=== PATIENT | male | born 1930 | race Caucasian/White ===

== ENCOUNTER 2017-01-25 19:10 | Inpatient (IN) ==
[2017-01-25] MEDS ORDERED: cefTRIAXone 1,000 MG in SODIUM CHLORIDE 0.9% 100 ML IV STA (19:34)
[2017-01-25 19:35] LABS: Basophils % 0.2 % (0.0-0.8); Hematocrit 38.5 VOL% (42.0-52.0); Hemoglobin 12.8 GM/DL (14.0-18.0); Immature Granulocytes % 0.9 %; Immature Granulocytes Absolute 0.15 #; Lymphocytes % 11.8 % (21.2-54.2); Mean Corpuscular HGB Conc 33.2 GM/DL (32-36); Mean Corpuscular Hemoglobin 26 PG (27-34); Mean Corpuscular Volume 79.1 FL (87-102); Mean Platelet Volume 11.2 FL (9.6-12.0); Monocytes # 1.6 10*3/uL (0.11-0.8); Monocytes % 9.1 % (1.7-12.7); Neutrophils # 13.2 10*3/uL (1.4-7.4); Platelet Count 216 T/CUMM (130-400); Red Blood Count 4.87 MC/CUMM (3.8-5.5); Red Cell Distribution Width 18.4 % (9.3-17.3)
[2017-01-25 19:47] LABS: Calcium 8.4 MG/DL (8.5-10.1); Magnesium 1.3 MG/DL (1.8-2.4); Osmolality,Calculated 276.1 MOS/KG (273-304); Potassium 3.7 MMOL/L (3.5-5.1)
[2017-01-25 19:47] LABS: Apearance,Urine CLOUDY (Clear); Bacteria,Urine Many /HPF (Few); Bilirubin,Urine Negative (Negative); Blood, Urine Small mg/dL (Negative); Glucose,Urine (UA) Negative (Negative); Ketones,Urine Negative (Negative); Nitrite,Urine Negative (Negative); Protein,Urine 100 MG/DL; RBC,Urine 58 /HPF (0-4); Urine Color Yellow (Yellow); Urine Urobilinogen < 2.0 EU/DL (0.2-1.0); WBC,Urine 5492 /HPF (0-6)
[2017-01-25 19:50] LABS: Lactic Acid 2.5 MMOL/L (0.4-2.0)
[2017-01-25] MEDS ORDERED: LACTATED RINGERS 1,000 ML IV ONE (20:03)
--- NOTE | 2017-01-25 20:26 | Emergency Department Note ---
Michael Hernandez Brittany, am scribing for, and in the presence of, Benny Subramanian MD 19 :37. Marilynn Hernandez Hans, MD, personally performed the services described in this documentation, ascribed by Janice Rodriguez in my presence, and it is both accurate and complete . Arrival - Arrival Chief Complaint: Altered Mental Status Stated Complaint: ams ED Nursing Triage Note: Pt began having altered mental status. Pt has history of alzheimers, but today family noticed a change in mental status. Mode of Arrival: Stretcher Limitations: Altered Mental Status Source: Family, RN Notes Reviewed Time Seen by Provider: 01/25/17 19:26 - History of Present Illness HPI Narrative: Patient is a 86 y/o white male with a history of Alzheimer's Disease presenting to the ED by EMS for further evaluation of AMS. Per triage note patient's noticed a change in his mental status today, different from his baseline. Patient does not have any family in room to provide any further history of his acute onset of AMS earlier today. He is oriented x3 in room and is able to tell us his name and current place. Patient denies having any pain or any other sx' s. It is noted that patient smells of foul urine. He does not appear to be in any acute distress. No other complaint/pain. Onset (ago): hour(s) Consistency: constant Allergies/Adverse Reactions: Allergies Allergy/AdvReac Type Severity Reaction Status Date / Time Penicillins Allergy Unknown/Unable Verified 01/25/17 19:20 to obtain Sulfa (Sulfonamide Allergy Unknown/Unable Verified 11/20/16 11:59 Antibiotics) to obtain Home Medications: Home Medications Medication Instructions Recorded Confirmed Type Allopurinol [Allopurinol] 300 mg PO DAILY 01/25/17 01/25/17 History Amlodipine Besylate/Benazepril 1 capsule PO DAILY 01/25/17 01/25/17 History [Amlodipine-Benazepril 10-40 mg] Atenolol [Atenolol] 50 mg PO BID 01/25/17 01/25/17 History Cetirizine Tab [ZyrTEC Tab] 10 mg PO DAILY PRN 01/25/17 01/25/17 History Colchicine [Colcrys] 0.6 mg PO BID 01/25/17 01/25/17 History Cyanocobalamin (Vitamin B-12) 2,500 mcg PO DAILY 01/25/17 01/25/17 History [Vitamin B12] Digoxin [Digoxin] 125 mcg PO DAILY 01/25/17 01/25/17 History Esomeprazole Magnesium [Nexium] 40 mg PO DAILY 01/25/17 01/25/17 History Finasteride [Finasteride] 5 mg PO DAILY 01/25/17 01/25/17 History Glimepiride [Glimepiride] 2 mg PO BID 01/25/17 01/25/17 History Metformin HCl [Metformin HCl] 1,000 mg PO BID W/MEALS 01/25/17 01/25/17 History Potassium Chloride [Klor-Con M20] 20 meq PO DAILY 01/25/17 01/25/17 History Tamsulosin [Flomax] 0.4 mg PO DAILY 01/25/17 01/25/17 History Warfarin Sodium [Warfarin Sodium] 2.5 mg PO TUSA 01/25/17 01/25/17 History Warfarin Sodium [Warfarin Sodium] 5 mg PO SUMOWEFR 01/25/17 01/25/17 History Review of System - Review of System 12 point system: reviewed and no additional remarkable complaints except as stated - Review of System Constitutional: Absent: chills, fever Eyes: Absent: vision change Head/Ears/Nose/Throat: Absent: nasal drainage, sore throat Respiratory: Absent: respiratory distress Cardiovascular: Absent: chest pain Gastrointestinal: Absent: abdominal pain, nausea, vomiting, diarrhea, constipation Genitourinary male: Absent: urgency, dysuria, frequency Musculoskeletal: Absent: arm pain, back pain, leg pain, neck pain Skin: Absent: rash Neurological: Present: confusion. Absent: headache Psychiatric: Absent: anxiety, depression Medical,Surgical,& Family Hx - Medical History Cardio: History of: Cardiac Dysrhythmia (a fib), CHF, Hypertension Endocrine: History of: Diabetes Mellitus (IDDM) Rheumatology: History of;: Gout - Social History Smoking Status: Never smoker Frequency of Alcohol Use: None Type of Drug Use: None Exam Vital Signs: Vital Signs Temperature 99.3 F 01/25/17 19:12 Pulse Rate 74 01/25/17 19:12 Respiratory Rate 18 01/25/17 19:43 Blood Pressure 133/64 01/25/17 19:12 O2 Sat by Pulse Oximetry 98 01/25/17 19:12 - General General appearance: alert, in no apparent distress, other (smells of foul urine) - Head Head exam: Present: atraumatic, normocephalic, normal inspection - Eye Eye exam: Present: normal appearance, PERRL, EOMI - ENT ENT exam: Present: normal exam, normal oropharynx - Neck Neck exam: Present: normal inspection, full ROM, trachea midline - Chest Chest inspection: Present: normal inspection, symmetric chest wall rise - Respiratory Respiratory exam: Present: normal lung sounds bilaterally - Cardiovascular Cardiovascular exam: Present: regular rate, normal rhythm, normal heart sounds - Abdominal Exam Abdominal exam: Present: soft, normal bowel sounds. Absent: tenderness - Extremities Exam Extremities exam: Present: normal inspection - Back Exam Back exam: Present: normal inspection - Neurological Exam Neurological exam: Present: alert, oriented X3, CN II-XII intact. Absent: motor sensory deficit - Psychiatric Psychiatric exam: Present: normal affect, normal mood - Skin Skin exam: Present: warm, dry Course Course Narrative: This patient was diagnosed with a severe urinary tract infection in the ER. I discussed his admission with Dr. Beltran is covering for Dr. Fall and he agreed to admit him to the hospital for IV antibiotics and repeat lactic acid in the morning. He received a liter of fluids in the ER and we will place him on a maintenance rate overnight and that should help clear his lactic acidosis which is fairly minimal. His vital signs are normal and he does not require ICU admission. Should be noted that the patient was initially refusing admission but I discussed this with his who states that he is not oriented and does not have the capacity to make decisions we will go ahead and admit him. Results - Labs CBC & BMP: 01/25/17 19:19 01/25/17 19:19 Lab Results: I have reviewed the patients labs Labs: Laboratory Tests 01/25/17 19:19 WBC 17.0 H RBC 4.87 Hgb 12.8 L Hct 38.5 L MCV 79.1 L MCH 26 L RDW 18.4 H Plt Count 216 Neut % (Auto) 78.0 H Lymph % (Auto) 11.8 L Neut # (Auto) 13.2 H Lymph # (Auto) 2.0 [place] # (Auto) 1.6 H Laboratory Tests 01/25/17 01/25/17 19:19 19:28 Sodium 135 L Potassium 3.7 Chloride 99 Carbon Dioxide 27 BUN 21 H Creatinine 1.00 BUN/Creatinine Ratio 21.00 H Glucose 173 H Lactic Acid 2.5 H Calcium 8.4 L Magnesium 1.3 L Urine Color Yellow Urine Appearance Cloudy Urine pH 5.0 Ur Specific [place] 1.010 Urine Protein 100 Urine Glucose (UA) Negative Urine Ketones Negative Urine Blood Small Urine Nitrate Negative Urine Bilirubin Negative Urine Urobilinogen < 2.0 H Urine Leukocytes Large H Urine RBC 58 Urine WBC 5492 Urine Bacteria Many Disposition Clinical Impression: Urinary tract infection Case discussed with: patient, patient's family Disposition: Still a Patient Condition: Stable Time of Disposition: 20:26
[2017-01-25 20:29] LABS: INR 3.7
[2017-01-25 20:35] LABS: PT Patient Result 42.1 SECS; Partial Thromboplastin Time 48.6 SECS (0-40)
[2017-01-25] MEDS ORDERED: cefTRIAXone 1,000 MG VIAL ONE (20:43)
[2017-01-25] MEDS ORDERED: GLUCAGON 1 MG VIAL IM PRN (21:45)
[2017-01-25] MEDS ORDERED: DEXTROSE 50% 25 GM/50 ML VIAL IV PRN (21:45)
[2017-01-25] MEDS ORDERED: PROMETHAZINE 25 MG TABLET PO PRN (21:45)
[2017-01-25] MEDS ORDERED: ONDANSETRON 4 MG/2 ML VIAL IV PRN (21:45)
[2017-01-25] MEDS: INSULIN REGULAR 100 UNIT/ML SUBCUT SCH (22:06)
[2017-01-25] MEDS: SODIUM CHLORIDE 0.9% 1,000 ML IV SCH (23:00)
[2017-01-26 05:51] LABS: Basophils % 0.2 % (0.0-0.8); Hematocrit 37.5 VOL% (42.0-52.0); Hemoglobin 12.4 GM/DL (14.0-18.0); Immature Granulocytes % 0.7 %; Immature Granulocytes Absolute 0.11 #; Lymphocytes # 2.5 10*3/uL (1.4-4.0); Lymphocytes % 16.1 % (21.2-54.2); Mean Corpuscular HGB Conc 33.1 GM/DL (32-36); Mean Corpuscular Hemoglobin 26 PG (27-34); Mean Corpuscular Volume 78.6 FL (87-102); Mean Platelet Volume 11.9 FL (9.6-12.0); Monocytes # 1.7 10*3/uL (0.11-0.8); Neutrophils # 11.3 10*3/uL (1.4-7.4); Platelet Count 192 T/CUMM (130-400); Red Blood Count 4.77 MC/CUMM (3.8-5.5); Red Cell Distribution Width 18.1 % (9.3-17.3); White Blood Count 15.7 T/CUMM (4-12)
[2017-01-26] MEDS: SODIUM CHLORIDE 0.9% 1,000 ML IV SCH ×2 (06:07→15:01)
[2017-01-26 06:28] LABS: Calcium 8.4 MG/DL (8.5-10.1); Osmolality,Calculated 277.7 MOS/KG (273-304); Potassium 3.4 MMOL/L (3.5-5.1)
[2017-01-26 07:34] LABS: Hypochromasia 1+; Ovalocytes Slight; Platelet Estimate Normal
--- NOTE | 2017-01-26 07:55 | XRay Report ---
XR chest 1V portable Indication: Febrile illness. Comparison: Chest x-ray 07/24/2009. Technique: Portable AP chest was performed. Findings: Faint airspace opacities are present within the right infrahilar lung adjacent the cardiac margin. Heart size is borderline. Mild prominence of central vasculature is noted which may reflect technique. Remote right rib fracture involving the lateral eighth rib is present. Impression: 1. Nonconsolidating airspace disease right infrahilar lung could reflect evidence of infection. Given the difference in technique, little overall change in appearance of the lung parenchyma is demonstrated. 01/26/2017 7:52 AM PROCEDURE INTERPRETED AT [facility] DEPARTMENT OF RADIOLOGY Final Report Signed by: Dr. Jeff Truong
--- NOTE | 2017-01-26 07:58 | Family Practice History&Phys ---
Assessment and Plan (1) Urinary tract infection Status: Acute Assessment and plan: 01/26/2017: Patient was started on IV Rocephin and cultures obtained in the emergency room. Dr. German will be consulted. Current Visit: Yes History of Present Illness Chief complaint: Altered mental status History of present illness: Mr. Van is a 86 year old male Patient is 86-year-old white male who apparently had some altering of his mental status and his called an ambulance to bring him to the emergency room. Patient does complain of some dysuria which he has had in the past and when he was seen in the emergency room was noted to have prominent pyuria. Patient was admitted for IV antibiotic therapy. Patient states he is ready to go home this morning so he can help his who is a dialysis patient. He did not have any fever or chills that he could recall. He denies any flank pain, nausea, vomiting or abdominal pain. His history is somewhat limited as he does have a history of dementia, but he is able to answer all questions and follow commands accurately. Home Medications Medication Instructions Recorded Confirmed Type Allopurinol [Allopurinol] 300 mg PO DAILY 01/25/17 01/25/17 History Amlodipine Besylate/Benazepril 1 capsule PO DAILY 01/25/17 01/25/17 History [Amlodipine-Benazepril 10-40 mg] Atenolol [Atenolol] 50 mg PO BID 01/25/17 01/25/17 History Cetirizine Tab [ZyrTEC Tab] 10 mg PO DAILY PRN 01/25/17 01/25/17 History Colchicine [Colcrys] 0.6 mg PO BID 01/25/17 01/25/17 History Cyanocobalamin (Vitamin B-12) 2,500 mcg PO DAILY 01/25/17 01/25/17 History [Vitamin B12] Digoxin [Digoxin] 125 mcg PO DAILY 01/25/17 01/25/17 History Esomeprazole Magnesium [Nexium] 40 mg PO DAILY 01/25/17 01/25/17 History Finasteride [Finasteride] 5 mg PO DAILY 01/25/17 01/25/17 History Glimepiride [Glimepiride] 2 mg PO BID 01/25/17 01/25/17 History Metformin HCl [Metformin HCl] 1,000 mg PO BID W/MEALS 01/25/17 01/25/17 History Potassium Chloride [Klor-Con M20] 20 meq PO DAILY 01/25/17 01/25/17 History Tamsulosin [Flomax] 0.4 mg PO DAILY 01/25/17 01/25/17 History Warfarin Sodium [Warfarin Sodium] 2.5 mg PO TUSA 01/25/17 01/25/17 History Warfarin Sodium [Warfarin Sodium] 5 mg PO SUMOWETHFR 01/25/17 01/25/17 History Allergies Allergy/AdvReac Type Severity Reaction Status Date / Time Penicillins Allergy Unknown/Unable Verified 01/25/17 19:20 to obtain Sulfa (Sulfonamide Allergy Unknown/Unable Verified 11/20/16 11:59 Antibiotics) to obtain - Constitutional Constitutional: Absent: chills, fever(s), weakness - EENT Eyes: Absent: blurry vision, loss of vision Ears: Absent: decreased hearing, ear pain Nose, mouth and throat: Absent: sinus pressure, sore throat - Cardiovascular Cardiovascular: Absent: chest pain at rest, palpitations - Respiratory Respiratory: Absent: cough, dyspnea on exertion, wheezing - Gastrointestinal Gastrointestinal: Absent: abdominal pain, diarrhea, nausea, vomiting - Genitourinary Genitourinary: Present: dysuria. Absent: hematuria - Musculoskeletal Musculoskeletal: Absent: arthralgias, back pain - Neurological Neurological: Present: confusion (This is chronic). Absent: focal weakness, numbness, paresthesias - Psychiatric Psychiatric: Present: confusion. Absent: depression - Endocrine Endocrine: Absent: fatigue, polydipsia, polyphagia - Hematologic/Lymphatic Hematologic/Lymphatic: Absent: easy bleeding, easy bruising Medical,Surgical,& Family Hx - Medical History Cardio: History of: Cardiac Dysrhythmia (a fib), CHF, Hypertension Psychological: No history of: Anxiety Disorders, ADHD, Behavior Problems, Bipolar Disorder, Depression, Previous Suicide Attempt, Psychiatric/Substance Abuse Tx, Schizophrenia, Violent Behavior, Psychiatric Problems Neurology: History of: Dementia Endocrine: History of: Diabetes Mellitus (IDDM) Rheumatology: History of;: Gout - Surgical History Surgical History: noncontributory - Family History Family History: Reports;: Family Cancer (father prostate ca), Family Diabetes ( mother, sister) - Social History Smoking Status: Never smoker Frequency of Alcohol Use: None Type of Drug Use: None Exam - Constitutional Vitals: Period Temp Pulse Resp BP Sys/Montiel Pulse Ox Last 24 Hr 98.0 F-99.5 F 74-95 18-20 116-141/59-73 91-98 Exam: General: Objective patient is a well-developed white male in no acute distress. Patient is able to answer questions appropriately and follow commands accurately. It is reported that he has a history of dementia but this is not clearly evident on exam. HEENT: Pupils equal and reactive to light. Patent nares and airway Neck: No meningismus, adenopathy, thyromegaly. There are no auscultated carotid bruits. Cardiovascular: Regular rhythm. No murmurs or gallops Chest: Clear to auscultation without rales rhonchi wheezes. Abdomen: Patient has some mild suprapubic tenderness. No masses, rebound, guarding or abnormal bowel sounds Neuro: Cranial nerves intact and DTRs and strength symmetric in all extremities. Dermatologic: No evidence of abnormal lesions or masses. Musculoskeletal: There is no joint swelling or tenderness or deformity. Extremities: Is no calf swelling or tenderness Results - Labs CBC & BMP: 01/26/17 05:32 01/26/17 05:32 Lab Results: I have reviewed the past 24 hour labs Quality Measures - VTE Contraindication to Pharmacological VTE Prophylaxis: Already on Theraputic Agent , No Prophylaxis Needed
[2017-01-26] MEDS ORDERED: CETIRIZINE 10 MG TABLET PO PRN (08:02)
[2017-01-26] MEDS ORDERED: MAGNESIUM SULF RIDER 2 GM in PREMIX 1 EACH IV ONE (08:13)
[2017-01-26] MEDS: INSULIN REGULAR 100 UNIT/ML SUBCUT SCH ×4 (09:08→21:48)
[2017-01-26] MEDS: FINASTERIDE 5 MG TABLET PO SCH (09:54)
[2017-01-26] MEDS: ATENOLOL 50 MG TABLET PO SCH ×2 (09:54→21:45)
[2017-01-26] MEDS: POTASSIUM CHLORIDE 20 MEQ TABLET PO SCH (09:54)
[2017-01-26] MEDS: GLIMEPIRIDE 2 MG TABLET PO SCH ×2 (09:55→21:45)
[2017-01-26] MEDS: ALLOPURINOL 300 MG TABLET PO SCH (09:55)
[2017-01-26] MEDS: COLCHICINE 0.6 MG TABLET PO SCH ×2 (09:55→21:45)
[2017-01-26] MEDS: DIGOXIN 0.125 MG TABLET PO SCH (09:55)
[2017-01-26] MEDS: TAMSULOSIN 0.4 MG CAPSULE PO SCH (09:55)
[2017-01-26] MEDS: CYANOCOBALAMIN 500 MCG TABLET PO SCH (09:55)
--- NOTE | 2017-01-26 10:20 | Urology Consultation ---
Assessment and Plan - Time spent with patient Time spent with patient: Greater than 30 minutes Time spent discussing smoking cessation with patient: more than 10 minutes (1) Urinary retention due to benign prostatic hyperplasia Status: Acute Assessment and plan: After the patient voided, I had the nursing staff check a postvoid residual. As it turns out, the patient had a 500 cc post void residual. He is already on Flomax and Proscar at home. After verbal consent was obtained, and under sterile technique, I placed a difficult catheter at the patient's bedside. It was an 18 Russian Lopez catheter. The patient tolerated this well. 10 cc was placed in the balloon. A urine culture was sent. I will have the patient keep the Lopez catheter in place and when he goes home go home with the urimeter as well as a urinary leg bag. I will have him follow-up for a voiding trial. Current Visit: Yes (2) Urinary tract infection Status: Acute Assessment and plan: The patient is currently being treated for a urinary tract infection with IV antibiotics. Urine cultures so far have grown out gram-negative rods speciation and sensitivities to follow. I recommend a total of 10 days antibiotic course. Current Visit: Yes History of Present Illness - Data of Consult Patient: new to practice Consult date: 01/26/17 Requesting Physician: Harshil Fall - Consult Narrative Reason for consult: Urinary retention, urinary tract infection History of present illness: Mr. Van is a 86 year old male Who presented to the emergency room with disorientation, fever, dysuria. This is been going on for the last few days but has gotten progressively worse. He notes the dysuria is dull and persistent and a 2 out of 10 on pain scale. No other associated symptoms nothing seems to make it better or worse. He was admitted through the hospitalist service and I was consulted for definitive care. CC: Harshil Fall MD - Home Medications and Allergies Home Medications: Home Medications Medication Instructions Recorded Confirmed Type Allopurinol [Allopurinol] 300 mg PO DAILY 01/25/17 01/25/17 History Amlodipine Besylate/Benazepril 1 capsule PO DAILY 01/25/17 01/25/17 History [Amlodipine-Benazepril 10-40 mg] Atenolol [Atenolol] 50 mg PO BID 01/25/17 01/25/17 History Cetirizine Tab [ZyrTEC Tab] 10 mg PO DAILY PRN 01/25/17 01/25/17 History Colchicine [Colcrys] 0.6 mg PO BID 01/25/17 01/25/17 History Cyanocobalamin (Vitamin B-12) 2,500 mcg PO DAILY 01/25/17 01/25/17 History [Vitamin B12] Digoxin [Digoxin] 125 mcg PO DAILY 01/25/17 01/25/17 History Esomeprazole Magnesium [Nexium] 40 mg PO DAILY 01/25/17 01/25/17 History Finasteride [Finasteride] 5 mg PO DAILY 01/25/17 01/25/17 History Glimepiride [Glimepiride] 2 mg PO BID 01/25/17 01/25/17 History Metformin HCl [Metformin HCl] 1,000 mg PO BID W/MEALS 01/25/17 01/25/17 History Potassium Chloride [Klor-Con M20] 20 meq PO DAILY 01/25/17 01/25/17 History Tamsulosin [Flomax] 0.4 mg PO DAILY 01/25/17 01/25/17 History Warfarin Sodium [Warfarin Sodium] 2.5 mg PO TUSA 01/25/17 01/25/17 History Warfarin Sodium [Warfarin Sodium] 5 mg PO SUMOWETHFR 01/25/17 01/25/17 History Allergies/Adverse Reactions: Allergies Allergy/AdvReac Type Severity Reaction Status Date / Time Penicillins Allergy Unknown/Unable Verified 01/25/17 19:20 to obtain Sulfa (Sulfonamide Allergy Unknown/Unable Verified 11/20/16 11:59 Antibiotics) to obtain 12 point system: reviewed and no additional remarkable complaints except as stated (Those noted above in HPI.) - Constitutional Constitutional: Present: as per HPI - EENT Eyes: Present: as per HPI Ears: Present: as per HPI Nose, mouth and throat: Present: as per HPI - Cardiovascular Cardiovascular: Present: as per HPI - Respiratory Respiratory: Present: as per HPI - Gastrointestinal Gastrointestinal: Present: as per HPI - Genitourinary Genitourinary: Present: as per HPI - Musculoskeletal Musculoskeletal: Present: as per HPI - Neurological Neurological: Present: as per HPI - Psychiatric Psychiatric: Present: as per HPI - Endocrine Endocrine: Present: as per HPI - Hematologic/Lymphatic Hematologic/Lymphatic: Present: as per HPI Exam - Constitutional Vitals: Period Temp Pulse Resp BP Sys/Montiel Pulse Ox Last 24 Hr 98.0 F-99.5 F 74-95 18-20 116-141/59-73 91-98 General appearance: normal weight, no acute distress - Head Head exam: Present: normal inspection, normocephalic, atraumatic - Eye Eye exam: Present: EOMI Pupils: Present: DANA - ENT ENT exam: Present: normal exam, normal external ear exam - Neck Neck exam: Present: normal inspection - Respiratory Respiratory exam: Present: clear to auscultation bilaterally - Cardiovascular Cardiovascular exam: Present: regular rate and rhythm - GI/Abdominal GI/Abdominal exam: Present: normal bowel sounds, soft - Genitourinary Genitourinary: scrotum without lesions, cysts, edema or rash, penis with no lesions or discharge - Extremities Exam Extremities exam: Present: normal inspection, normal capillary refill - Back Exam Back exam: Present: normal inspection - Neurological Exam Neurological exam: Present: alert - Psychiatric Psychiatric exam: Present: normal affect, normal mood - Skin Skin exam: Present: normal color, warm Results - Labs CBC & BMP: 01/26/17 05:32 01/26/17 05:32 Lab Results: I have reviewed the past 24 hour labs
[2017-01-26] MEDS: PANTOPRAZOLE 40 MG TABLET PO SCH (13:27)
[2017-01-26] MEDS: metFORMIN 500 MG TABLET PO SCH (17:45)
[2017-01-26] MEDS ORDERED: WARFARIN 5 MG TABLET PO SCH (18:00)
[2017-01-26] MEDS: cefTRIAXone 1,000 MG in SODIUM CHLORIDE 0.9% 100 ML IV SCH (21:45)
[2017-01-27] MEDS: SODIUM CHLORIDE 0.9% 1,000 ML IV SCH ×4 (00:40→23:39)
[2017-01-27 06:26] LABS: INR 1.8
[2017-01-27 06:43] LABS: Calcium 8.4 MG/DL (8.5-10.1); Magnesium 1.7 MG/DL (1.8-2.4); Osmolality,Calculated 278.3 MOS/KG (273-304); Potassium 3.3 MMOL/L (3.5-5.1)
[2017-01-27 06:45] LABS: PT Patient Result 20.1 SECS
--- NOTE | 2017-01-27 07:34 | Urology Progress Note ---
Urology - PN: Subj Interval history: The patient has a positive urine culture with gram-negative rods and the final report is pending. The patient has symptoms of difficulty voiding for a week or 2 prior to admission with an elevated residual urine. I am going to remove the catheter today for trial of voiding Exam - Constitutional Vitals: Period Temp Pulse Resp BP Sys/Montiel Pulse Ox Last 24 Hr 98.1 F-99.3 F 64-80 16-20 103-118/51-67 93-96 Results - Labs CBC & BMP: 01/26/17 05:32 01/27/17 05:16
[2017-01-27] MEDS: INSULIN REGULAR 100 UNIT/ML SUBCUT SCH ×4 (08:07→21:30)
--- NOTE | 2017-01-27 09:03 | Internal Med Progress Note ---
Assessment and Plan (1) Change in mental status Status: Acute Assessment and plan: 86-year-old male admitted to acute care * Change in mental status. Probably related to the urinary tract infection. Patient does have a baseline early dementia * Urinary tract infection. Cultures are pending. Patient is on Rocephin for gram-negative rods * BPH with urinary retention. Patient has had recurrent urinary tract infections in recent past. I suspect he is not emptying his bladder. * Atrial fibrillation. He will be continued on Coumadin. Will restart * Hypertension. Blood pressure is stable * Diabetes. Continue him on metformin and Amaryl * Will ask PT and OT to see the patient Current Visit: Yes (2) Hypertension Status: Acute Current Visit: Yes (3) Diabetes Status: Acute Current Visit: Yes (4) A-fib Status: Acute Current Visit: Yes (5) BPH (benign prostatic hyperplasia) Status: Acute Current Visit: Yes (6) Urinary tract infection Status: Acute Current Visit: Yes Internal Medicine - PN: Subj Interval history: Patient is 86-year-old male well known to me with history of A. fib, congestive heart failure, hypertension who was admitted with change in mental status and was found to have a urinary tract infection. Patient had elevated white count with increased INR. He has been started on appropriate medications and was seen in consultation by urology. A Lopez catheter was placed. He is feeling better this morning. According to nurses he was confused during the night. He denies any chest pain or shortness of breath. He denies any nausea or vomiting. Exam (Progress Note) - Constitutional Vitals: Period Temp Pulse Resp BP Sys/Montiel Pulse Ox Last 24 Hr 98.1 F-99.3 F 64-84 16-20 103-118/51-67 90-96 Exam: Examination: GENERAL: NAD. HEENT: PERRLA. EOMI. NECK: Neck is supple. CVS: Regular rate and rhythm. S1 and S2 are normal. RESPIRATORY: Lungs are clear. No rales or rhonchi. ABDOMEN: Soft and nontender. Bowel sounds are present. No hepatosplenomegaly. EXT: No edema. Peripheral pulses are present. EDGE STRIPPER: Patient is awake, alert and oriented to time place and person. He is moving both upper and lower extremities SKIN: Warm and dry. MSK: No obvious deformity. Results - Labs CBC & BMP: 01/26/17 05:32 01/27/17 05:16 Lab Results: I have reviewed the past 24 hour labs Quality Measures - VTE Contraindication to Pharmacological VTE Prophylaxis: Already on Theraputic Agent , No Prophylaxis Needed
[2017-01-27] MEDS: CYANOCOBALAMIN 500 MCG TABLET PO SCH (09:09)
[2017-01-27] MEDS: PANTOPRAZOLE 40 MG TABLET PO SCH (09:10)
[2017-01-27] MEDS: COLCHICINE 0.6 MG TABLET PO SCH ×2 (09:10→21:30)
[2017-01-27] MEDS: ALLOPURINOL 300 MG TABLET PO SCH (09:10)
[2017-01-27] MEDS: TAMSULOSIN 0.4 MG CAPSULE PO SCH (09:10)
[2017-01-27] MEDS: FINASTERIDE 5 MG TABLET PO SCH (09:10)
[2017-01-27] MEDS: POTASSIUM CHLORIDE 20 MEQ TABLET PO SCH ×2 (09:10→21:30)
[2017-01-27] MEDS: DIGOXIN 0.125 MG TABLET PO SCH (09:11)
[2017-01-27] MEDS: metFORMIN 500 MG TABLET PO SCH ×2 (09:11→18:28)
[2017-01-27] MEDS: GLIMEPIRIDE 2 MG TABLET PO SCH ×2 (09:11→21:30)
[2017-01-27] MEDS: ATENOLOL 50 MG TABLET PO SCH ×2 (09:16→21:30)
[2017-01-27] MEDS: cefTRIAXone 1,000 MG in SODIUM CHLORIDE 0.9% 100 ML IV SCH (21:32)
[2017-01-28 06:58] LABS: Basophils # 0.1 10*3/uL (0.0-0.2); Basophils % 0.5 % (0.0-0.8); Eosinophils # 0.3 10*3/uL (0.0-0.87); Eosinophils % 2.9 % (0.00-10.9); Hematocrit 35.3 VOL% (42.0-52.0); Hemoglobin 11.4 GM/DL (14.0-18.0); Immature Granulocytes % 0.8 %; Immature Granulocytes Absolute 0.07 #; Lymphocytes % 32.3 % (21.2-54.2); Mean Corpuscular HGB Conc 32.3 GM/DL (32-36); Mean Corpuscular Hemoglobin 26 PG (27-34); Mean Corpuscular Volume 80.6 FL (87-102); Monocytes # 0.8 10*3/uL (0.11-0.8); Monocytes % 8.9 % (1.7-12.7); Neutrophils # 5.1 10*3/uL (1.4-7.4); Neutrophils % 54.6 % (38.7-73.9); Platelet Count 208 T/CUMM (130-400); Red Blood Count 4.38 MC/CUMM (3.8-5.5); Red Cell Distribution Width 18.1 % (9.3-17.3); White Blood Count 9.3 T/CUMM (4-12)
[2017-01-28 07:25] LABS: Calcium 7.8 MG/DL (8.5-10.1); Osmolality,Calculated 279.3 MOS/KG (273-304); Potassium 3.6 MMOL/L (3.5-5.1)
[2017-01-28] MEDS: INSULIN REGULAR 100 UNIT/ML SUBCUT SCH ×4 (07:28→20:03)
--- NOTE | 2017-01-28 07:52 | Urology Progress Note ---
Urology - PN: Subj Interval history: The patient's urine culture is E. coli sensitive to multiple antibiotics. The patient is voiding his last residual was 150 cc. I will decrease this to twice a day and if he continues to have low residual he can go home as needed Exam - Constitutional Vitals: Period Temp Pulse Resp BP Sys/Montiel Pulse Ox Last 24 Hr 97.3 F-98.1 F 68-84 18-20 106-144/66-72 92-94 Results - Labs CBC & BMP: 01/28/17 05:05 01/28/17 05:05
--- NOTE | 2017-01-28 08:19 | Internal Med Progress Note ---
Assessment and Plan (1) Change in mental status Status: Acute Assessment and plan: 86-year-old male admitted to acute care * Change in mental status. Resolved other than mild dementia * Urinary tract infection. E. coli sensitive to Rocephin * BPH with urinary retention. He is getting in and out catheterization * Atrial fibrillation. Continue Coumadin * Hypertension. Blood pressure is stable * Diabetes. Continue him on metformin and Amaryl * Patient working with PT and OT Current Visit: Yes (2) Hypertension Status: Acute Current Visit: Yes (3) Diabetes Status: Acute Current Visit: Yes (4) A-fib Status: Acute Current Visit: Yes (5) BPH (benign prostatic hyperplasia) Status: Acute Current Visit: Yes (6) Urinary tract infection Status: Acute Current Visit: Yes Internal Medicine - PN: Subj Interval history: Patient is 86-year-old male well known to me with history of A. fib, congestive heart failure, hypertension who was admitted with change in mental status. Patient is growing E. coli in his urine sensitive to Rocephin. He is still having large amount of residuals. Patient has had about 4 or 5 recurrent urinary tract infections over last 6 months. He is probably not emptying his bladder completely. Exam (Progress Note) - Constitutional Vitals: Period Temp Pulse Resp BP Sys/Montiel Pulse Ox Last 24 Hr 97.3 F-98.1 F 68-84 18-20 106-144/66-72 92-94 Exam: Examination: GENERAL: NAD. CVS: Regular rate and rhythm. S1 and S2 are normal. RESPIRATORY: Lungs are clear. No rales or rhonchi. ABDOMEN: Soft and nontender. Bowel sounds are present. No hepatosplenomegaly. EXT: No edema. Peripheral pulses are present. YACHT BUILDER: Patient is awake, alert and oriented to time place and person. SKIN: Warm and dry. MSK: No obvious deformity. Results - Labs CBC & BMP: 01/28/17 05:05 01/28/17 05:05 Lab Results: I have reviewed the past 24 hour labs Quality Measures - VTE Contraindication to Pharmacological VTE Prophylaxis: Already on Theraputic Agent , No Prophylaxis Needed
[2017-01-28] MEDS: SODIUM CHLORIDE 0.9% 1,000 ML IV SCH ×2 (08:30→17:00)
[2017-01-28] MEDS: CYANOCOBALAMIN 500 MCG TABLET PO SCH (09:01)
[2017-01-28] MEDS: GLIMEPIRIDE 2 MG TABLET PO SCH ×2 (09:01→20:04)
[2017-01-28] MEDS: DIGOXIN 0.125 MG TABLET PO SCH (09:01)
[2017-01-28] MEDS: ALLOPURINOL 300 MG TABLET PO SCH (09:01)
[2017-01-28] MEDS: POTASSIUM CHLORIDE 20 MEQ TABLET PO SCH ×2 (09:02→20:04)
[2017-01-28] MEDS: ATENOLOL 50 MG TABLET PO SCH ×2 (09:02→20:04)
[2017-01-28] MEDS: COLCHICINE 0.6 MG TABLET PO SCH ×2 (09:02→20:04)
[2017-01-28] MEDS: metFORMIN 500 MG TABLET PO SCH ×2 (09:02→17:00)
[2017-01-28] MEDS: FINASTERIDE 5 MG TABLET PO SCH (09:02)
[2017-01-28] MEDS: PANTOPRAZOLE 40 MG TABLET PO SCH (09:02)
[2017-01-28] MEDS: TAMSULOSIN 0.4 MG CAPSULE PO SCH (09:02)
[2017-01-28] MEDS ORDERED: WARFARIN 2.5 MG TABLET PO SCH (18:00)
[2017-01-28] MEDS: cefTRIAXone 1,000 MG in SODIUM CHLORIDE 0.9% 100 ML IV SCH (20:04)
[2017-01-29] MEDS: SODIUM CHLORIDE 0.9% 1,000 ML IV SCH ×2 (01:58→02:27)
--- NOTE | 2017-01-29 07:42 | Urology Progress Note ---
Urology - PN: Subj Interval history: The patient had elevated residual urine yesterday. He has been taught self- catheterization and will have a home health nurse see the patient post discharge and continue intermittent self-catheterization as needed. He will continue Flomax and Avodart Exam - Constitutional Vitals: Period Temp Pulse Resp BP Sys/Montiel Pulse Ox Last 24 Hr 96.7 F-97.8 F 67-86 16-20 126-145/61-84 92-96 Results - Labs CBC & BMP: 01/28/17 05:05 01/28/17 05:05 Specialty Discharge - Follow Up or Referrals Follow up with: Kuldip German MD [Physician] - 1 Month
[2017-01-29] MEDS: INSULIN REGULAR 100 UNIT/ML SUBCUT SCH ×2 (08:01→10:37)
[2017-01-29] MEDS: CYANOCOBALAMIN 500 MCG TABLET PO SCH (08:31)
[2017-01-29] MEDS: DIGOXIN 0.125 MG TABLET PO SCH (08:31)
[2017-01-29] MEDS: COLCHICINE 0.6 MG TABLET PO SCH (08:31)
[2017-01-29] MEDS: GLIMEPIRIDE 2 MG TABLET PO SCH (08:31)
[2017-01-29] MEDS: POTASSIUM CHLORIDE 20 MEQ TABLET PO SCH (08:32)
[2017-01-29] MEDS: TAMSULOSIN 0.4 MG CAPSULE PO SCH (08:32)
[2017-01-29] MEDS: ALLOPURINOL 300 MG TABLET PO SCH (08:32)
[2017-01-29] MEDS: ATENOLOL 50 MG TABLET PO SCH (08:32)
[2017-01-29] MEDS: FINASTERIDE 5 MG TABLET PO SCH (08:32)
[2017-01-29] MEDS: PANTOPRAZOLE 40 MG TABLET PO SCH (08:32)
[2017-01-29] MEDS: metFORMIN 500 MG TABLET PO SCH (08:32)
--- NOTE | 2017-01-29 09:45 | Discharge Summary ---
Hospital Course - Hospital Course Hospital Course: 86-year-old male with history of hypertension, A. fib, diabetes, BPH who was admitted with change in mental status and was found to have urinary tract infection. Patient was started on IV antibiotics. He had difficulty voiding. Patient was seen in consultation by urology. They recommended in and out catheterization. Patient is still having significant retention. He was talked about doing in and out catheterization himself and is doing well. He is ready to be discharged home. He will be sent home on Ceftin 500 twice daily. His INR is pending this morning. His Coumadin dose was adjusted. I will see him back in office in about 10 days. Diagnosis - Discharge Diagnosis (1) Change in mental status Status: Acute (2) Hypertension Status: Acute (3) Diabetes Status: Acute (4) A-fib Status: Acute (5) BPH (benign prostatic hyperplasia) Status: Acute (6) Urinary tract infection Status: Acute Specialty Discharge - Follow Up or Referrals Follow up with: Kuldip German MD [Physician] - 03/05/17 9:00 am Discharge Plan - Discharge Data Disposition: Home Health Service Condition at Discharge: Stable Discharge Diet: advance to your usual diet Activity: resume usual activities as tolerated - Discharge Medications New Cefuroxime Tab [Ceftin] 500 mg PO BID #14 tablet Continue Amlodipine Besylate/Benazepril [Amlodipine-Benazepril 10-40 mg] 1 capsule PO DAILY Colchicine [Colcrys] 0.6 mg PO BID Atenolol 50 mg PO BID Warfarin Sodium 5 mg PO SUMOWETHFR Warfarin Sodium 2.5 mg PO TUSA Finasteride 5 mg PO DAILY Cetirizine Tab [ZyrTEC Tab] 10 mg PO DAILY PRN PRN Reason: Allergy Symptoms Glimepiride 2 mg PO BID Metformin HCl 1,000 mg PO BID W/MEALS Esomeprazole Magnesium [Nexium] 40 mg PO DAILY Tamsulosin [Flomax] 0.4 mg PO DAILY Cyanocobalamin (Vitamin B-12) [Vitamin B12] 2,500 mcg PO DAILY Allopurinol 300 mg PO DAILY Potassium Chloride [Klor-Con M20] 20 meq PO DAILY Digoxin 125 mcg PO DAILY - Follow Up or Referral Follow Up: Kuldip German MD [Physician] - 03/05/17 9:00 am - Forms/Instructions Instructions: Benign Prostatic Hypertrophy (DC), How to Catheterize Yourself ( Man) (GEN) Additional Discharge Instructions: Appointment in office in 10 days with TCM. CBC BMP and a urinalysis. Call in Ceftin 500 twice daily for 7 days Exam - Constitutional Vitals: Period Temp Pulse Resp BP Sys/Montiel Pulse Ox Last 24 Hr 96.7 F-97.8 F 67-77 16-20 126-145/61-84 92-98 Exam: Examination: GENERAL: NAD. CVS: Regular rate and rhythm. RESPIRATORY: Lungs are clear. ABDOMEN: Soft and nontender. EXT: No edema. Peripheral pulses are present. TESTING ANALYST: Patient is awake, alert and oriented to time place and person. SKIN: Warm and dry. MSK: No obvious deformity. Discharge Results Procedures and tests throughout hospitalization: Pending Orders 01/25/17 20:43 Blood Culture Stat Labs on day of discharge: Labs from last 24 hours 01/29/17 01/28/17 01/28/17 07:52 19:40 15:19 POC Glucose 64 L 131 H 142 H 01/28/17 11:01 POC Glucose 127 H Preliminary micro results at discharge 01/25/17 20:43 Blood Culture - Preliminary Blood No growth at 3 days 01/25/17 20:36 Blood Culture - Preliminary Blood No growth at 3 days DS: Provider Date of admission: 01/25/17 20:20 Primary care physician: . No PCP Attending physician on admission: Harshil Fall MD Consults: 01/26/17 08:01 Consult to Physician [CONS] Routine Comment: Consulting Provider: Kuldip German Person Notified: aware 01/27/17 09:09 Consult to Occupational Therapy [CONS] Routine Reason for Occupational Therapy: Evaluate and Treat Consult to Physical Therapy [CONS] Routine Reason for Physical Therapy: Evaluate and Treat 01/28/17 08:06 Consult to Case Mgmt/Social Srvs [CONS] Routine Reason for Case Mgmt/Social Srvs: Home Health Discharging clinician: Harshil Fall MD
[2017-01-29 10:16] LABS: INR 1.6; PT Patient Result 17.1 SECS
[2017-01-29 11:39] VITALS: BP 125/65
== END 2017-01-29 13:20 | disposition home health service (06) | DRG 690 ==
LOC: EDUNIT# → EDBD → N.ED 19:10 → N.EDINP 20:20 → N.5E 21:12
PROVIDERS: ADMIT Internal Medicine; ATTEND Internal Medicine

== ENCOUNTER 2017-10-27 13:54 | Inpatient (IN) ==
[2017-10-27] MEDS ORDERED: GLUCAGON 1 MG VIAL IM PRN (13:59)
[2017-10-27] MEDS ORDERED: DEXTROSE 50% 25 GM/50 ML VIAL IV PRN (13:59)
[2017-10-27] MEDS ORDERED: ONDANSETRON 4 MG/2 ML VIAL IV PRN (13:59)
[2017-10-27] MEDS ORDERED: ACETAMINOPHEN 325 MG TABLET PO PRN (13:59)
[2017-10-27 15:12] LABS: Basophils # 0.1 10*3/uL (0.0-0.2); Basophils % 0.4 % (0.0-0.8); Hematocrit 38.7 VOL% (42.0-52.0); Hemoglobin 13.2 GM/DL (14.0-18.0); Immature Granulocytes % 0.8 %; Immature Granulocytes Absolute 0.14 #; Lymphocytes # 2.3 10*3/uL (1.4-4.0); Lymphocytes % 12.2 % (21.2-54.2); Mean Corpuscular HGB Conc 34.1 GM/DL (32-36); Mean Corpuscular Hemoglobin 27 PG (27-34); Mean Platelet Volume 11.5 FL (9.6-12.0); Monocytes # 1.7 10*3/uL (0.11-0.8); Monocytes % 8.9 % (1.7-12.7); Neutrophils # 14.4 10*3/uL (1.4-7.4); Neutrophils % 77.7 % (38.7-73.9); Platelet Count 292 T/CUMM (130-400); Red Blood Count 4.84 MC/CUMM (3.8-5.5); Red Cell Distribution Width 16.7 % (9.3-17.3); White Blood Count 18.5 T/CUMM (4-12)
[2017-10-27 15:22] LABS: INR 2.9
[2017-10-27 15:26] LABS: PT Patient Result 29.5 SECS
[2017-10-27 15:28] LABS: Albumin 2.7 G/DL (3.4-5.0); Bilirubin,Total 1.3 MG/DL (0.2-1.0); Calcium 8.4 MG/DL (8.5-10.1); Osmolality,Calculated 268.4 MOS/KG (273-304); Potassium 3.1 MMOL/L (3.5-5.1); Total Protein 7.9 G/DL (6.4-8.3)
[2017-10-27] MEDS ORDERED: VANCOMYCIN INJ 1,250 MG in SODIUM CHLORIDE 0.9% 250 ML IV ONE (16:00)
[2017-10-27 18:25] LABS: Apearance,Urine CLOUDY (Clear); Bacteria,Urine Many /HPF (Few); Bilirubin,Urine Negative (Negative); Blood, Urine Moderate mg/dL (Negative); Glucose,Urine (UA) Negative (Negative); Ketones,Urine Negative (Negative); Mucus,Urine Occasional /LPF (Occasional); Nitrite,Urine Negative (Negative); Protein,Urine 100 MG/DL; Squamous Epithelial Cell,Urine Occasional /HPF (0-10); Urine Color Yellow (Yellow); Urine Specific Gravity 1.011 (1.001-1.035); Urine Urobilinogen < 2.0 EU/DL (0.2-1.0); WBC,Urine 453 /HPF (0-6)
[2017-10-27] MEDS: ATENOLOL 50 MG TABLET PO SCH (21:04)
[2017-10-27] MEDS: DOCUSATE SODIUM 100 MG CAPSULE PO SCH (21:04)
[2017-10-27] MEDS: GLIMEPIRIDE 2 MG TABLET PO SCH (21:04)
[2017-10-27] MEDS: cefTRIAXone 1,000 MG in SYRINGE 1 EACH IV SCH (21:04)
[2017-10-27] MEDS: POTASSIUM CHLORIDE 20 MEQ TABLET PO SCH (21:04)
[2017-10-28 07:11] LABS: Basophils # 0.1 10*3/uL (0.0-0.2); Basophils % 0.4 % (0.0-0.8); Eosinophils % 0.2 % (0.00-10.9); Hemoglobin 12.3 GM/DL (14.0-18.0); Immature Granulocytes Absolute 0.17 #; Lymphocytes # 2.5 10*3/uL (1.4-4.0); Lymphocytes % 14.9 % (21.2-54.2); Mean Corpuscular HGB Conc 32.4 GM/DL (32-36); Mean Corpuscular Hemoglobin 27 PG (27-34); Mean Corpuscular Volume 81.9 FL (87-102); Mean Platelet Volume 12.2 FL (9.6-12.0); Monocytes # 1.7 10*3/uL (0.11-0.8); Monocytes % 10.3 % (1.7-12.7); Neutrophils # 12.3 10*3/uL (1.4-7.4); Neutrophils % 73.2 % (38.7-73.9); Platelet Count 224 T/CUMM (130-400); Red Blood Count 4.64 MC/CUMM (3.8-5.5); Red Cell Distribution Width 16.7 % (9.3-17.3); White Blood Count 16.8 T/CUMM (4-12)
[2017-10-28 07:22] LABS: INR 2.4
[2017-10-28 07:26] LABS: PT Patient Result 24.1 SECS
[2017-10-28 07:28] LABS: Calcium 8.8 MG/DL (8.5-10.1); Osmolality,Calculated 272.8 MOS/KG (273-304); Potassium 3.2 MMOL/L (3.5-5.1)
[2017-10-28] MEDS: GLIMEPIRIDE 2 MG TABLET PO SCH ×2 (08:57→20:18)
[2017-10-28] MEDS: TAMSULOSIN 0.4 MG CAPSULE PO SCH (08:57)
[2017-10-28] MEDS: POTASSIUM CHLORIDE 20 MEQ TABLET PO SCH ×2 (08:57→20:19)
[2017-10-28] MEDS: ALLOPURINOL 300 MG TABLET PO SCH (08:57)
[2017-10-28] MEDS: metFORMIN 500 MG TABLET PO SCH ×2 (08:57→16:00)
[2017-10-28] MEDS: PANTOPRAZOLE 40 MG TABLET PO SCH (08:58)
[2017-10-28] MEDS: ATENOLOL 50 MG TABLET PO SCH ×2 (08:58→20:18)
[2017-10-28] MEDS: amLODIPine 10 MG TABLET PO SCH (08:58)
[2017-10-28] MEDS: DOCUSATE SODIUM 100 MG CAPSULE PO SCH ×2 (08:58→20:18)
[2017-10-28] MEDS: BENAZEPRIL 40 MG TABLET PO SCH (08:59)
[2017-10-28] MEDS ORDERED: POTASSIUM CHLORIDE 20 MEQ TABLET PO SCH (09:00)
[2017-10-28] MEDS: VANCOMYCIN INJ 1,000 MG in SODIUM CHLORIDE 0.9% 250 ML IV SCH (13:26)
[2017-10-28] MEDS: cefTRIAXone 1,000 MG in SYRINGE 1 EACH IV SCH (20:19)
[2017-10-29] MEDS: VANCOMYCIN INJ 1,000 MG in SODIUM CHLORIDE 0.9% 250 ML IV SCH (05:57)
[2017-10-29 06:01] LABS: INR 1.9
[2017-10-29] MEDS: BENAZEPRIL 40 MG TABLET PO SCH (08:17)
[2017-10-29] MEDS: ALLOPURINOL 300 MG TABLET PO SCH (08:18)
[2017-10-29] MEDS: POTASSIUM CHLORIDE 20 MEQ TABLET PO SCH ×2 (08:18→20:38)
[2017-10-29] MEDS: DOCUSATE SODIUM 100 MG CAPSULE PO SCH ×2 (08:18→20:38)
[2017-10-29] MEDS: TAMSULOSIN 0.4 MG CAPSULE PO SCH (08:18)
[2017-10-29] MEDS: metFORMIN 500 MG TABLET PO SCH ×2 (08:18→17:37)
[2017-10-29] MEDS: PANTOPRAZOLE 40 MG TABLET PO SCH (08:18)
[2017-10-29] MEDS: amLODIPine 10 MG TABLET PO SCH (08:18)
[2017-10-29] MEDS: ATENOLOL 50 MG TABLET PO SCH ×2 (08:18→20:38)
[2017-10-29] MEDS: GLIMEPIRIDE 2 MG TABLET PO SCH ×2 (08:18→20:37)
[2017-10-29] MEDS ORDERED: CETIRIZINE 10 MG TABLET PO PRN (08:55)
[2017-10-29] MEDS ORDERED: traMADol 50 MG TABLET PO PRN (08:55)
[2017-10-29] MEDS ORDERED: BENAZEPRIL PO SCH (09:00)
[2017-10-29] MEDS ORDERED: NON-FORMULARY MEDICATION (Esomeprazole Magnesium [Nexium] 40 MG) PO SCH (09:00)
[2017-10-29] MEDS ORDERED: AMLODIPINE BESYLATE PO SCH (09:00)
[2017-10-29] MEDS ORDERED: [UNRECOGNIZED DRUG - OTHER] PO SCH (09:00)
[2017-10-29] MEDS: FINASTERIDE 5 MG TABLET PO SCH (09:52)
[2017-10-29] MEDS: DIGOXIN 0.125 MG TABLET PO SCH (09:52)
[2017-10-29] MEDS: CYANOCOBALAMIN 500 MCG TABLET PO SCH (09:52)
[2017-10-29] MEDS: DICLOFENAC 1% GEL 100 GM TUBE TOP SCH ×2 (09:52→20:39)
[2017-10-29] MEDS: ceFAZolin 1,000 MG in SYRINGE 1 EACH IV SCH (14:58)
[2017-10-29] MEDS ORDERED: WARFARIN 5 MG TABLET PO SCH (18:00)
[2017-10-30] MEDS: ceFAZolin 1,000 MG in SYRINGE 1 EACH IV SCH ×2 (00:16→08:43)
[2017-10-30] MEDS: VANCOMYCIN INJ 1,000 MG in SODIUM CHLORIDE 0.9% 250 ML IV SCH (00:19)
[2017-10-30 05:42] LABS: Basophils % 0.4 % (0.0-0.8); Eosinophils # 0.3 10*3/uL (0.0-0.87); Eosinophils % 2.7 % (0.00-10.9); Hemoglobin 11.3 GM/DL (14.0-18.0); Immature Granulocytes Absolute 0.18 #; Lymphocytes # 3.2 10*3/uL (1.4-4.0); Lymphocytes % 34.6 % (21.2-54.2); Mean Corpuscular HGB Conc 32.3 GM/DL (32-36); Mean Corpuscular Hemoglobin 26 PG (27-34); Mean Corpuscular Volume 81.2 FL (87-102); Mean Platelet Volume 11.8 FL (9.6-12.0); Monocytes # 0.7 10*3/uL (0.11-0.8); Monocytes % 7.6 % (1.7-12.7); Neutrophils # 4.8 10*3/uL (1.4-7.4); Neutrophils % 52.7 % (38.7-73.9); Platelet Count 305 T/CUMM (130-400); Red Blood Count 4.31 MC/CUMM (3.8-5.5); Red Cell Distribution Width 16.6 % (9.3-17.3); White Blood Count 9.1 T/CUMM (4-12)
[2017-10-30 05:47] LABS: INR 2.5; Total Cells Counted 100
[2017-10-30 06:02] LABS: PT Patient Result 25.9 SECS
[2017-10-30 06:11] LABS: Calcium 8.4 MG/DL (8.5-10.1); Osmolality,Calculated 280.3 MOS/KG (273-304); Potassium 3.9 MMOL/L (3.5-5.1)
[2017-10-30] MEDS: metFORMIN 500 MG TABLET PO SCH (08:38)
[2017-10-30] MEDS: amLODIPine 10 MG TABLET PO SCH (08:38)
[2017-10-30] MEDS: ALLOPURINOL 300 MG TABLET PO SCH (08:38)
[2017-10-30] MEDS: BENAZEPRIL 40 MG TABLET PO SCH (08:38)
[2017-10-30] MEDS: CYANOCOBALAMIN 500 MCG TABLET PO SCH (08:39)
[2017-10-30] MEDS: TAMSULOSIN 0.4 MG CAPSULE PO SCH (08:39)
[2017-10-30] MEDS: GLIMEPIRIDE 2 MG TABLET PO SCH (08:39)
[2017-10-30] MEDS: DOCUSATE SODIUM 100 MG CAPSULE PO SCH (08:39)
[2017-10-30] MEDS: POTASSIUM CHLORIDE 20 MEQ TABLET PO SCH (08:39)
[2017-10-30] MEDS: ATENOLOL 50 MG TABLET PO SCH (08:39)
[2017-10-30] MEDS: PANTOPRAZOLE 40 MG TABLET PO SCH (08:40)
[2017-10-30] MEDS: DIGOXIN 0.125 MG TABLET PO SCH (08:40)
[2017-10-30] MEDS: FINASTERIDE 5 MG TABLET PO SCH (08:40)
[2017-10-30] MEDS: DICLOFENAC 1% GEL 100 GM TUBE TOP SCH (08:45)
[2017-10-30 11:22] VITALS: BP 128/72
[2017-10-30] MEDS ORDERED: VANCOMYCIN INJ 1,000 MG in SODIUM CHLORIDE 0.9% 250 ML IV SCH (13:00)
[2017-10-30] MEDS ORDERED: WARFARIN 2.5 MG TABLET PO SCH (18:00)
== END 2017-10-30 13:22 | disposition home health service (06) | DRG 603 ==
LOC: N.2E 14:30
PROVIDERS: ADMIT Internal Medicine; ATTEND Internal Medicine

== ENCOUNTER 2018-08-28 10:21 | Inpatient (IN) ==
[2018-08-28] MEDS ORDERED: GLUCAGON 1 MG VIAL IM PRN (10:42)
[2018-08-28] MEDS ORDERED: DEXTROSE 50% 25 GM/50 ML VIAL IV PRN (10:42)
[2018-08-28] MEDS ORDERED: ONDANSETRON 4 MG/2 ML VIAL IV PRN (10:42)
[2018-08-28] MEDS ORDERED: PHYTONADIONE 10 MG/1 ML AMP SUBCUT ONE (10:46)
[2018-08-28] MEDS ORDERED: SODIUM CHLORIDE 0.9% 1,000 ML IV PRN (10:52)
[2018-08-28 11:40] LABS: Basophils # 0.1 10*3/uL (0.0-0.2); Basophils % 0.4 % (0.0-0.8); Eosinophils % 0.1 % (0.00-10.9); Hematocrit 28.2 VOL% (42.0-52.0); Hemoglobin 9.7 GM/DL (14.0-18.0); Immature Granulocytes % 1.1 %; Immature Granulocytes Absolute 0.14 #; Lymphocytes # 1.9 10*3/uL (1.4-4.0); Lymphocytes % 14.3 % (21.2-54.2); Mean Corpuscular HGB Conc 34.4 GM/DL (32-36); Mean Corpuscular Hemoglobin 28 PG (27-34); Mean Corpuscular Volume 79.9 FL (87-102); Mean Platelet Volume 12.2 FL (9.6-12.0); Monocytes # 0.8 10*3/uL (0.11-0.8); Monocytes % 6.2 % (1.7-12.7); Neutrophils # 10.1 10*3/uL (1.4-7.4); Neutrophils % 77.9 % (38.7-73.9); Platelet Count 356 T/CUMM (130-400); Red Blood Count 3.53 MC/CUMM (3.8-5.5)
[2018-08-28] MEDS ORDERED: OXYMETAZOLINE 0.05% NASAL SPRAY 15 ML BOTTLE BOTH NARES PRN (11:40)
[2018-08-28 11:55] LABS: Calcium 8.8 MG/DL (8.5-10.1); Potassium 3.8 MMOL/L (3.5-5.1)
[2018-08-28] MEDS ORDERED: INFLUENZA VIRUS VACCINE 0.5 ML SYRINGE IM ONE (12:17)
[2018-08-28] MEDS: SODIUM CHLORIDE 0.9% 1,000 ML IV SCH ×2 (13:38→22:50)
[2018-08-28 16:18] LABS: Apearance,Urine CLOUDY (Clear); Bacteria,Urine Occasional /HPF (Few); Blood, Urine Large mg/dL (Negative); Glucose,Urine (UA) Negative (Negative); Ketones,Urine Negative (Negative); Mucus,Urine Occasional /LPF (Occasional); Nitrite,Urine Negative (Negative); Protein,Urine 30 MG/DL; RBC,Urine 22 /HPF (0-4); Squamous Epithelial Cell,Urine Occasional /HPF (0-10); Urine Color Amber (Yellow); Urine Specific Gravity 1.015 (1.001-1.035); WBC,Urine 194 /HPF (0-6)
[2018-08-28 16:19] LABS: Bilirubin,Urine Small mg/dL (Negative)
[2018-08-28] MEDS: INSULIN LISPRO 100 UNIT/ML SUBCUT SCH (16:30)
[2018-08-28] MEDS: ACETAMINOPHEN 325 MG TABLET PO PRN (18:44)
[2018-08-28] MEDS: DOCUSATE SODIUM 100 MG CAPSULE PO SCH (20:14)
[2018-08-28] MEDS: FAMOTIDINE 20 MG TABLET PO PRN (20:14)
[2018-08-29 05:37] LABS: Basophils % 0.3 % (0.0-0.8); Eosinophils # 0.1 10*3/uL (0.0-0.87); Eosinophils % 0.5 % (0.00-10.9); Hematocrit 22.8 VOL% (42.0-52.0); Hemoglobin 7.8 GM/DL (14.0-18.0); Immature Granulocytes % 1.5 %; Immature Granulocytes Absolute 0.17 #; Lymphocytes % 17.9 % (21.2-54.2); Mean Corpuscular HGB Conc 34.2 GM/DL (32-36); Mean Corpuscular Hemoglobin 27 PG (27-34); Mean Corpuscular Volume 78.9 FL (87-102); Mean Platelet Volume 12.9 FL (9.6-12.0); Monocytes % 8.6 % (1.7-12.7); Neutrophils # 7.9 10*3/uL (1.4-7.4); Neutrophils % 71.2 % (38.7-73.9); Platelet Count 291 T/CUMM (130-400); Red Blood Count 2.89 MC/CUMM (3.8-5.5); Red Cell Distribution Width 19.9 % (9.3-17.3)
[2018-08-29 05:41] LABS: INR 2.8
[2018-08-29 05:52] LABS: PT Patient Result 30.2 SECS
[2018-08-29 06:10] LABS: Calcium 8.3 MG/DL (8.5-10.1); Osmolality,Calculated 279.4 MOS/KG (273-304)
[2018-08-29] MEDS: SODIUM CHLORIDE 0.9% 1,000 ML IV SCH ×2 (07:41→19:06)
[2018-08-29] MEDS: INSULIN LISPRO 100 UNIT/ML SUBCUT SCH ×2 (09:24→16:13)
[2018-08-29] MEDS: DOCUSATE SODIUM 100 MG CAPSULE PO SCH ×2 (09:48→20:31)
[2018-08-29] MEDS: PANTOPRAZOLE 40 MG TABLET PO SCH (09:49)
[2018-08-29] MEDS ORDERED: PHYTONADIONE 10 MG/1 ML AMP SUBCUT ONE (10:29)
[2018-08-29] MEDS: LEVOFLOXACIN INJ 500 MG in PREMIX 1 EACH IV SCH (11:25)
[2018-08-29] MEDS ORDERED: GENTAMICIN INJ 80 MG in PREMIX 1 EACH IV ONE (12:00)
[2018-08-29] MEDS: POTASSIUM CHLORIDE 20 MEQ TABLET PO SCH (15:08)
[2018-08-29 15:40] LABS: Hematocrit 23.6 VOL% (42.0-52.0)
[2018-08-30] MEDS: SODIUM CHLORIDE 0.9% 1,000 ML IV SCH ×2 (05:18→20:17)
[2018-08-30 06:13] LABS: INR 1.3; PT Patient Result 14.4 SECS
[2018-08-30] MEDS: INSULIN LISPRO 100 UNIT/ML SUBCUT SCH ×2 (09:23→16:29)
[2018-08-30] MEDS: DOCUSATE SODIUM 100 MG CAPSULE PO SCH ×2 (09:24→20:17)
[2018-08-30] MEDS: POTASSIUM CHLORIDE 20 MEQ TABLET PO SCH (09:24)
[2018-08-30] MEDS: PANTOPRAZOLE 40 MG TABLET PO SCH (09:25)
[2018-08-30 09:35] LABS: Cancer Antigen 19-9 327.1 U/ML (0-37); Carcinoembryonic Antigen 2.7 NG/ML (0.0-5.0)
[2018-08-30] MEDS: LEVOFLOXACIN INJ 500 MG in PREMIX 1 EACH IV SCH (10:28)
[2018-08-30 11:07] LABS: Basophils % 0.1 % (0.0-0.8); Eosinophils % 0.2 % (0.00-10.9); Immature Granulocytes Absolute 0.11 #; Lymphocytes # 1.4 10*3/uL (1.4-4.0); Lymphocytes % 12.1 % (21.2-54.2); Mean Corpuscular HGB Conc 33.3 GM/DL (32-36); Mean Corpuscular Hemoglobin 27 PG (27-34); Mean Corpuscular Volume 81.7 FL (87-102); Mean Platelet Volume 11.7 FL (9.6-12.0); Monocytes # 0.8 10*3/uL (0.11-0.8); Monocytes % 7.5 % (1.7-12.7); Neutrophils # 8.9 10*3/uL (1.4-7.4); Neutrophils % 79.1 % (38.7-73.9); Platelet Count 317 T/CUMM (130-400); Red Blood Count 2.57 MC/CUMM (3.8-5.5); Red Cell Distribution Width 20.3 % (9.3-17.3); White Blood Count 11.2 T/CUMM (4-12)
[2018-08-30] MEDS ORDERED: SODIUM CHLORIDE 0.9% 1,000 ML IV PRN (13:50)
[2018-08-30] MEDS: PANTOPRAZOLE 40 MG VIAL IV SCH ×2 (16:28→21:30)
[2018-08-30] MEDS: FAMOTIDINE 20 MG TABLET PO PRN (20:17)
[2018-08-31 05:18] LABS: Basophils % 0.3 % (0.0-0.8); Eosinophils # 0.1 10*3/uL (0.0-0.87); Eosinophils % 1.5 % (0.00-10.9); Hematocrit 28.3 VOL% (42.0-52.0); Hemoglobin 9.4 GM/DL (14.0-18.0); Immature Granulocytes % 1.1 %; Lymphocytes # 1.5 10*3/uL (1.4-4.0); Lymphocytes % 17.4 % (21.2-54.2); Mean Corpuscular HGB Conc 33.2 GM/DL (32-36); Mean Corpuscular Hemoglobin 27 PG (27-34); Mean Corpuscular Volume 80.6 FL (87-102); Mean Platelet Volume 12.3 FL (9.6-12.0); Monocytes # 0.7 10*3/uL (0.11-0.8); Monocytes % 8.4 % (1.7-12.7); Neutrophils # 6.2 10*3/uL (1.4-7.4); Neutrophils % 71.3 % (38.7-73.9); Platelet Count 321 T/CUMM (130-400); Red Blood Count 3.51 MC/CUMM (3.8-5.5); Red Cell Distribution Width 19.9 % (9.3-17.3); White Blood Count 8.7 T/CUMM (4-12)
[2018-08-31 05:38] LABS: INR 1.2; PT Patient Result 12.9 SECS
[2018-08-31] MEDS: SODIUM CHLORIDE 0.9% 1,000 ML IV SCH ×4 (05:54→23:15)
[2018-08-31] MEDS: INSULIN LISPRO 100 UNIT/ML SUBCUT SCH ×2 (07:19→17:13)
[2018-08-31] MEDS: PANTOPRAZOLE 40 MG TABLET PO SCH (08:39)
[2018-08-31] MEDS: DOCUSATE SODIUM 100 MG CAPSULE PO SCH ×2 (08:39→21:21)
[2018-08-31] MEDS: POTASSIUM CHLORIDE 20 MEQ TABLET PO SCH (08:39)
[2018-08-31] MEDS: PANTOPRAZOLE 40 MG VIAL IV SCH ×2 (08:50→21:21)
[2018-08-31] MEDS: NITROFURANTOIN MACRO/MONO 100 MG CAPSULE PO SCH ×2 (09:56→21:21)
[2018-08-31 10:04] LABS: Albumin 1.6 G/DL (3.4-5.0); Bilirubin,Direct 3.49 MG/DL (0.0-0.20); Bilirubin,Indirect 20.2 MG/DL (0.0-1.0); Total Protein 7.4 G/DL (6.4-8.3)
[2018-08-31 10:08] LABS: Bilirubin,Total 23.7 MG/DL (0.2-1.0)
[2018-08-31] MEDS: LEVOFLOXACIN INJ 500 MG in PREMIX 1 EACH IV SCH (10:49)
[2018-08-31 12:00] LABS: Osmolality,Calculated 282.1 MOS/KG (273-304); Potassium 2.7 MMOL/L (3.5-5.1)
[2018-08-31] MEDS ORDERED: GLUCAGON 1 MG VIAL IM PRN (13:51)
[2018-08-31] MEDS ORDERED: DEXTROSE 50% 25 GM/50 ML SYRINGE IV PRN (13:51)
[2018-08-31] MEDS: POTASSIUM CHLORIDE RIDER 10 MEQ in PREMIX 1 EACH IV SCH ×3 (13:59→17:11)
[2018-09-01] MEDS: SODIUM CHLORIDE 0.9% 1,000 ML IV SCH ×2 (05:15→16:07)
[2018-09-01 05:26] LABS: Basophils % 0.5 % (0.0-0.8); Eosinophils # 0.2 10*3/uL (0.0-0.87); Eosinophils % 2.2 % (0.00-10.9); Hematocrit 26.9 VOL% (42.0-52.0); Hemoglobin 8.9 GM/DL (14.0-18.0); Immature Granulocytes % 1.4 %; Immature Granulocytes Absolute 0.12 #; Lymphocytes # 1.5 10*3/uL (1.4-4.0); Lymphocytes % 17.5 % (21.2-54.2); Mean Corpuscular HGB Conc 33.1 GM/DL (32-36); Mean Corpuscular Hemoglobin 27 PG (27-34); Mean Corpuscular Volume 80.5 FL (87-102); Mean Platelet Volume 12.2 FL (9.6-12.0); Monocytes # 0.7 10*3/uL (0.11-0.8); Monocytes % 8.1 % (1.7-12.7); Neutrophils # 5.9 10*3/uL (1.4-7.4); Neutrophils % 70.3 % (38.7-73.9); Platelet Count 335 T/CUMM (130-400); Red Blood Count 3.34 MC/CUMM (3.8-5.5); Red Cell Distribution Width 20.6 % (9.3-17.3); White Blood Count 8.3 T/CUMM (4-12)
[2018-09-01 05:29] LABS: INR 1.2; PT Patient Result 13.3 SECS
[2018-09-01 05:43] LABS: Albumin 1.8 G/DL (3.4-5.0); Calcium 7.7 MG/DL (8.5-10.1); Osmolality,Calculated 281.1 MOS/KG (273-304); Potassium 2.6 MMOL/L (3.5-5.1); Total Protein 5.6 G/DL (6.4-8.3)
[2018-09-01 05:47] LABS: Bilirubin,Total 17.3 MG/DL (0.2-1.0)
[2018-09-01] MEDS: INSULIN LISPRO 100 UNIT/ML SUBCUT SCH ×2 (07:31→16:24)
[2018-09-01] MEDS: POTASSIUM CHLORIDE RIDER 10 MEQ in PREMIX 1 EACH IV PRN ×4 (08:39→21:32)
[2018-09-01] MEDS: PANTOPRAZOLE 40 MG TABLET PO SCH (08:39)
[2018-09-01] MEDS: NITROFURANTOIN MACRO/MONO 100 MG CAPSULE PO SCH ×2 (08:39→21:27)
[2018-09-01] MEDS: DOCUSATE SODIUM 100 MG CAPSULE PO SCH ×2 (08:39→21:28)
[2018-09-01] MEDS: POTASSIUM CHLORIDE 20 MEQ TABLET PO SCH ×2 (08:40→21:28)
[2018-09-01] MEDS: PANTOPRAZOLE 40 MG VIAL IV SCH ×2 (08:40→21:29)
[2018-09-01] MEDS ORDERED: GLUCAGON 1 MG VIAL ONE (11:24)
[2018-09-01] MEDS ORDERED: fentaNYL 100 MCG/2 ML VIAL ONE (13:21)
[2018-09-01] MEDS ORDERED: SEVOFLURANE 1 UNIT/15 MINUTE INH ONE (13:21)
[2018-09-01] MEDS ORDERED: ETOMIDATE 40 MG/20 ML VIAL IV ONE (13:22)
[2018-09-01] MEDS ORDERED: SUCCINYLCHOLINE 200 MG/10 ML VIAL ONE (13:22)
[2018-09-01] MEDS ORDERED: PHENYLEPHRINE 1 MG/10 ML SYRINGE IV ONE (13:22)
[2018-09-01] MEDS ORDERED: LACTATED RINGERS 1,000 ML IV ONE (13:22)
[2018-09-01] MEDS: LEVOFLOXACIN INJ 500 MG in PREMIX 1 EACH IV SCH (15:05)
[2018-09-01] MEDS: ACETAMINOPHEN 325 MG TABLET PO PRN (17:58)
[2018-09-01] MEDS: FAMOTIDINE 20 MG TABLET PO PRN (21:29)
[2018-09-02] MEDS: SODIUM CHLORIDE 0.9% 1,000 ML IV SCH ×2 (05:49→23:17)
[2018-09-02 05:52] LABS: Basophils % 0.1 % (0.0-0.8); Eosinophils # 0.1 10*3/uL (0.0-0.87); Eosinophils % 0.9 % (0.00-10.9); Hematocrit 25.9 VOL% (42.0-52.0); Hemoglobin 8.7 GM/DL (14.0-18.0); Immature Granulocytes % 1.2 %; Immature Granulocytes Absolute 0.11 #; Lymphocytes # 1.4 10*3/uL (1.4-4.0); Lymphocytes % 15.7 % (21.2-54.2); Mean Corpuscular HGB Conc 33.6 GM/DL (32-36); Mean Corpuscular Hemoglobin 27 PG (27-34); Mean Corpuscular Volume 81.4 FL (87-102); Mean Platelet Volume 11.7 FL (9.6-12.0); Monocytes # 0.9 10*3/uL (0.11-0.8); Monocytes % 9.4 % (1.7-12.7); Neutrophils # 6.6 10*3/uL (1.4-7.4); Neutrophils % 72.7 % (38.7-73.9); Platelet Count 338 T/CUMM (130-400); Red Blood Count 3.18 MC/CUMM (3.8-5.5); Red Cell Distribution Width 21.2 % (9.3-17.3)
[2018-09-02 06:01] LABS: INR 1.3
[2018-09-02] MEDS: POTASSIUM CHLORIDE RIDER 10 MEQ in PREMIX 1 EACH IV PRN ×3 (06:56→09:43)
[2018-09-02] MEDS ORDERED: SODIUM CHLORIDE 0.9% 1,000 ML IV PRN ×2 (08:13→08:43)
[2018-09-02] MEDS: INSULIN LISPRO 100 UNIT/ML SUBCUT SCH ×2 (08:24→16:19)
[2018-09-02] MEDS: NITROFURANTOIN MACRO/MONO 100 MG CAPSULE PO SCH ×2 (08:35→21:34)
[2018-09-02] MEDS: DOCUSATE SODIUM 100 MG CAPSULE PO SCH ×2 (08:35→21:35)
[2018-09-02] MEDS: PANTOPRAZOLE 40 MG TABLET PO SCH (08:35)
[2018-09-02] MEDS: POTASSIUM CHLORIDE 20 MEQ TABLET PO SCH ×2 (08:36→21:34)
[2018-09-02] MEDS: PANTOPRAZOLE 40 MG VIAL IV SCH ×2 (08:39→21:32)
[2018-09-02 09:03] LABS: Albumin 1.9 G/DL (3.4-5.0); Bilirubin,Direct 14.16 MG/DL (0.0-0.20)
[2018-09-02 09:07] LABS: Bilirubin,Indirect 3.8 MG/DL (0.0-1.0)
[2018-09-02] MEDS: LEVOFLOXACIN INJ 500 MG in PREMIX 1 EACH IV SCH (10:06)
[2018-09-02 11:43] LABS: Calcium 7.5 MG/DL (8.5-10.1); Osmolality,Calculated 280.4 MOS/KG (273-304); Potassium 4.1 MMOL/L (3.5-5.1)
[2018-09-02] MEDS ORDERED: FUROSEMIDE 40 MG/4 ML VIAL IV PRN (12:00)
[2018-09-02 18:23] LABS: Hematocrit 36.2 VOL% (42.0-52.0); Hemoglobin 12.1 GM/DL (14.0-18.0)
[2018-09-03] MEDS: SODIUM CHLORIDE 0.9% 1,000 ML IV SCH ×2 (01:52→11:51)
[2018-09-03 04:49] LABS: Basophils % 0.3 % (0.0-0.8); Eosinophils # 0.2 10*3/uL (0.0-0.87); Eosinophils % 1.8 % (0.00-10.9); Hematocrit 32.7 VOL% (42.0-52.0); Immature Granulocytes % 1.2 %; Lymphocytes # 1.5 10*3/uL (1.4-4.0); Lymphocytes % 17.1 % (21.2-54.2); Mean Corpuscular HGB Conc 33.6 GM/DL (32-36); Mean Corpuscular Hemoglobin 28 PG (27-34); Monocytes # 0.9 10*3/uL (0.11-0.8); Monocytes % 9.8 % (1.7-12.7); Neutrophils % 69.8 % (38.7-73.9); Platelet Count 322 T/CUMM (130-400); Red Blood Count 3.99 MC/CUMM (3.8-5.5); Red Cell Distribution Width 20.9 % (9.3-17.3); White Blood Count 8.7 T/CUMM (4-12)
[2018-09-03 05:27] LABS: Calcium 7.8 MG/DL (8.5-10.1); Osmolality,Calculated 275.5 MOS/KG (273-304); Potassium 3.2 MMOL/L (3.5-5.1)
[2018-09-03 05:31] LABS: Bilirubin,Total 16.6 MG/DL (0.2-1.0)
[2018-09-03] MEDS: DOCUSATE SODIUM 100 MG CAPSULE PO SCH (08:02)
[2018-09-03] MEDS: POTASSIUM CHLORIDE 20 MEQ TABLET PO SCH (08:02)
[2018-09-03] MEDS: PANTOPRAZOLE 40 MG TABLET PO SCH (08:02)
[2018-09-03] MEDS: PANTOPRAZOLE 40 MG VIAL IV SCH (08:03)
[2018-09-03] MEDS: NITROFURANTOIN MACRO/MONO 100 MG CAPSULE PO SCH (08:03)
[2018-09-03 08:10] VITALS: BP 150/93
[2018-09-03] MEDS: INSULIN LISPRO 100 UNIT/ML SUBCUT SCH (09:56)
[2018-09-03] MEDS: LEVOFLOXACIN INJ 500 MG in PREMIX 1 EACH IV SCH (11:52)
== END 2018-09-03 11:52 | disposition hospice, home (50) | DRG 444 ==
LOC: N.3E 11:04
PROVIDERS: ADMIT Internal Medicine; ATTEND Internal Medicine

== ENCOUNTER 2018-10-04 14:38 | Inpatient (IN) ==
[2018-10-04] MEDS ORDERED: SODIUM CHLORIDE 0.9% 1,000 ML IV STA (15:01)
[2018-10-04] MEDS ORDERED: SODIUM CHLORIDE 0.9% 500 ML IV STA (15:52)
[2018-10-04 16:00] LABS: Basophils % 0.1 % (0.0-0.8); Hematocrit 39.7 VOL% (42.0-52.0); Hemoglobin 12.6 GM/DL (14.0-18.0); Immature Granulocytes % 1.5 %; Immature Granulocytes Absolute 0.51 #; Lymphocytes # 1.1 10*3/uL (1.4-4.0); Lymphocytes % 3.3 % (21.2-54.2); Mean Corpuscular HGB Conc 31.7 GM/DL (32-36); Mean Corpuscular Hemoglobin 28 PG (27-34); Mean Corpuscular Volume 88.6 FL (87-102); Mean Platelet Volume 11.1 FL (9.6-12.0); Monocytes # 1.3 10*3/uL (0.11-0.8); Monocytes % 3.8 % (1.7-12.7); Neutrophils # 31.7 10*3/uL (1.4-7.4); Neutrophils % 91.3 % (38.7-73.9); Platelet Count 244 T/CUMM (130-400); Red Blood Count 4.48 MC/CUMM (3.8-5.5); Red Cell Distribution Width 15.9 % (9.3-17.3); White Blood Count 34.7 T/CUMM (4-12)
[2018-10-04] MEDS ORDERED: LEVOFLOXACIN INJ 500 MG in PREMIX 1 EACH IV STA (16:08)
[2018-10-04 16:10] LABS: INR 1.3; PT Patient Result 14.6 SECS
[2018-10-04] MEDS ORDERED: DEXTROSE 50% 25 GM/50 ML VIAL IV PRN (16:19)
[2018-10-04] MEDS ORDERED: GLUCAGON 1 MG VIAL IM PRN (16:19)
[2018-10-04] MEDS ORDERED: ACETAMINOPHEN 325 MG TABLET PO PRN (16:19)
[2018-10-04] MEDS ORDERED: MORPHINE 4 MG/1 ML VIAL IV PRN (16:19)
[2018-10-04] MEDS ORDERED: ONDANSETRON 4 MG/2 ML VIAL IV PRN (16:19)
[2018-10-04 16:21] LABS: Albumin 2.1 G/DL (3.4-5.0); Bilirubin,Total 5.1 MG/DL (0.2-1.0); Calcium 8.1 MG/DL (8.5-10.1); Osmolality,Calculated 270.4 MOS/KG (273-304); Potassium 3.9 MMOL/L (3.5-5.1); Total Protein 6.5 G/DL (6.4-8.3)
[2018-10-04 16:37] LABS: Band Neutrophils 13 % (0-10); Lymphocytes 1 % (20-55); Platelet Estimate Adequate; Segmented Neutrophils 83 % (50-85); Total Cells Counted 100
[2018-10-04 17:35] LABS: Apearance,Urine Slightly Hazy (Clear); Bacteria,Urine Occasional /HPF (Few); Bilirubin,Urine Small mg/dL (Negative); Blood, Urine Small mg/dL (Negative); Glucose,Urine (UA) Negative (Negative); Ketones,Urine Negative (Negative); Nitrite,Urine Negative (Negative); Protein,Urine 30 MG/DL; RBC,Urine 4 /HPF (0-4); Squamous Epithelial Cell,Urine Occasional /HPF (0-10); Urine Color Dark yellow (Yellow); Urine Specific Gravity 1.015 (1.001-1.035); WBC,Urine 86 /HPF (0-6)
[2018-10-04] MEDS: DEXTROSE 5% NACL 0.45% 1,000 ML IV SCH (18:57)
[2018-10-04] MEDS ORDERED: SODIUM CHLORIDE 0.9% 500 ML IV ONE (19:06)
[2018-10-04] MEDS: INSULIN LISPRO 100 UNIT/ML SUBCUT SCH ×2 (19:11→20:17)
[2018-10-04] MEDS: ENOXAPARIN 40 MG/0.4 ML SYRINGE SUBCUT SCH (20:18)
[2018-10-05] MEDS: DEXTROSE 5% NACL 0.45% 1,000 ML IV SCH ×3 (03:29→16:31)
[2018-10-05] MEDS: INSULIN LISPRO 100 UNIT/ML SUBCUT SCH ×5 (08:04→20:28)
[2018-10-05] MEDS: PANTOPRAZOLE 40 MG VIAL IV SCH (08:04)
[2018-10-05] MEDS: cefTRIAXone 1,000 MG in SYRINGE 1 EACH IV SCH (12:19)
[2018-10-05] MEDS: SODIUM CHLORIDE 0.9% 1,000 ML IV SCH ×2 (12:19→17:00)
[2018-10-05] MEDS: ZINC OXIDE PASTE 113 GM TUBE TOP SCH ×2 (16:31→20:27)
[2018-10-05] MEDS ORDERED: LEVOFLOXACIN INJ 250 MG in PREMIX 1 EACH IV SCH (17:00)
[2018-10-05] MEDS: ENOXAPARIN 40 MG/0.4 ML SYRINGE SUBCUT SCH (20:28)
[2018-10-06 05:13] LABS: Basophils % 0.1 % (0.0-0.8); Eosinophils % 0.1 % (0.00-10.9); Hematocrit 38.4 VOL% (42.0-52.0); Hemoglobin 12.4 GM/DL (14.0-18.0); Immature Granulocytes % 0.6 %; Immature Granulocytes Absolute 0.09 #; Lymphocytes # 0.9 10*3/uL (1.4-4.0); Lymphocytes % 6.5 % (21.2-54.2); Mean Corpuscular HGB Conc 32.3 GM/DL (32-36); Mean Corpuscular Hemoglobin 28 PG (27-34); Mean Corpuscular Volume 86.5 FL (87-102); Mean Platelet Volume 12.4 FL (9.6-12.0); Monocytes # 0.6 10*3/uL (0.11-0.8); Monocytes % 4.3 % (1.7-12.7); Neutrophils # 12.8 10*3/uL (1.4-7.4); Neutrophils % 88.4 % (38.7-73.9); Platelet Count 196 T/CUMM (130-400); Red Blood Count 4.44 MC/CUMM (3.8-5.5); Red Cell Distribution Width 15.9 % (9.3-17.3); White Blood Count 14.5 T/CUMM (4-12)
[2018-10-06 05:28] LABS: Albumin 1.8 G/DL (3.4-5.0); Bilirubin,Total 6.2 MG/DL (0.2-1.0); Potassium 3.1 MMOL/L (3.5-5.1)
[2018-10-06] MEDS: SODIUM CHLORIDE 0.9% 1,000 ML IV SCH ×3 (06:14→21:25)
[2018-10-06] MEDS: DEXTROSE 5% NACL 0.45% 1,000 ML IV SCH ×2 (06:30→14:15)
[2018-10-06] MEDS: INSULIN LISPRO 100 UNIT/ML SUBCUT SCH ×4 (07:31→20:15)
[2018-10-06] MEDS: cefTRIAXone 1,000 MG in SYRINGE 1 EACH IV SCH (09:56)
[2018-10-06] MEDS: POTASSIUM CHLORIDE 20 MEQ TABLET PO PRN ×4 (09:56→18:24)
[2018-10-06] MEDS: PANTOPRAZOLE 40 MG VIAL IV SCH (09:59)
[2018-10-06] MEDS: ZINC OXIDE PASTE 113 GM TUBE TOP SCH ×2 (10:00→20:16)
[2018-10-06] MEDS: ENOXAPARIN 40 MG/0.4 ML SYRINGE SUBCUT SCH (20:15)
[2018-10-07 04:46] LABS: Basophils % 0.1 % (0.0-0.8); Eosinophils # 0.1 10*3/uL (0.0-0.87); Eosinophils % 0.8 % (0.00-10.9); Hematocrit 35.2 VOL% (42.0-52.0); Hemoglobin 11.5 GM/DL (14.0-18.0); Immature Granulocytes % 0.6 %; Immature Granulocytes Absolute 0.05 #; Lymphocytes # 1.1 10*3/uL (1.4-4.0); Lymphocytes % 12.4 % (21.2-54.2); Mean Corpuscular HGB Conc 32.7 GM/DL (32-36); Mean Corpuscular Hemoglobin 28 PG (27-34); Mean Corpuscular Volume 85.6 FL (87-102); Mean Platelet Volume 12.6 FL (9.6-12.0); Monocytes # 0.5 10*3/uL (0.11-0.8); Monocytes % 6.3 % (1.7-12.7); Neutrophils # 6.8 10*3/uL (1.4-7.4); Neutrophils % 79.8 % (38.7-73.9); Platelet Count 202 T/CUMM (130-400); Red Blood Count 4.11 MC/CUMM (3.8-5.5); Red Cell Distribution Width 15.9 % (9.3-17.3); White Blood Count 8.5 T/CUMM (4-12)
[2018-10-07 05:07] LABS: Calcium 7.6 MG/DL (8.5-10.1); Osmolality,Calculated 275.7 MOS/KG (273-304); Potassium 3.5 MMOL/L (3.5-5.1)
[2018-10-07] MEDS: DEXTROSE 5% NACL 0.45% 1,000 ML IV SCH (07:41)
[2018-10-07] MEDS: INSULIN LISPRO 100 UNIT/ML SUBCUT SCH ×4 (08:01→21:02)
[2018-10-07] MEDS: ZINC OXIDE PASTE 113 GM TUBE TOP SCH ×2 (09:05→21:04)
[2018-10-07] MEDS: PANTOPRAZOLE 40 MG VIAL IV SCH (09:06)
[2018-10-07] MEDS: POTASSIUM CHLORIDE 20 MEQ TABLET PO PRN ×2 (09:06→11:43)
[2018-10-07] MEDS: SODIUM CHLORIDE 0.9% 1,000 ML IV SCH ×2 (09:08→17:50)
[2018-10-07] MEDS: cefTRIAXone 1,000 MG in SYRINGE 1 EACH IV SCH (09:08)
[2018-10-07] MEDS: ENOXAPARIN 40 MG/0.4 ML SYRINGE SUBCUT SCH (21:02)
[2018-10-08 05:13] LABS: Basophils % 0.2 % (0.0-0.8); Eosinophils # 0.1 10*3/uL (0.0-0.87); Eosinophils % 0.9 % (0.00-10.9); Hematocrit 34.7 VOL% (42.0-52.0); Hemoglobin 11.5 GM/DL (14.0-18.0); Immature Granulocytes % 0.7 %; Immature Granulocytes Absolute 0.06 #; Lymphocytes # 1.6 10*3/uL (1.4-4.0); Mean Corpuscular HGB Conc 33.1 GM/DL (32-36); Mean Corpuscular Hemoglobin 28 PG (27-34); Mean Corpuscular Volume 84.8 FL (87-102); Mean Platelet Volume 12.4 FL (9.6-12.0); Monocytes # 0.7 10*3/uL (0.11-0.8); Neutrophils # 5.7 10*3/uL (1.4-7.4); Neutrophils % 69.2 % (38.7-73.9); Platelet Count 211 T/CUMM (130-400); Red Blood Count 4.09 MC/CUMM (3.8-5.5); Red Cell Distribution Width 15.9 % (9.3-17.3); White Blood Count 8.2 T/CUMM (4-12)
[2018-10-08 05:28] LABS: Calcium 7.5 MG/DL (8.5-10.1); Osmolality,Calculated 275.7 MOS/KG (273-304); Potassium 3.4 MMOL/L (3.5-5.1)
[2018-10-08 08:07] LABS: Albumin 1.6 G/DL (3.4-5.0); Bilirubin,Direct 6.15 MG/DL (0.0-0.20); Bilirubin,Indirect 1.6 MG/DL (0.0-1.0); Bilirubin,Total 7.7 MG/DL (0.2-1.0); Total Protein 5.9 G/DL (6.4-8.3)
[2018-10-08] MEDS: INSULIN LISPRO 100 UNIT/ML SUBCUT SCH ×4 (08:17→21:14)
[2018-10-08] MEDS: TAMSULOSIN 0.4 MG CAPSULE PO SCH (09:15)
[2018-10-08] MEDS: ATENOLOL 25 MG TABLET PO SCH ×2 (09:15→21:12)
[2018-10-08] MEDS: cefTRIAXone 1,000 MG in SYRINGE 1 EACH IV SCH (09:15)
[2018-10-08] MEDS: POTASSIUM CHLORIDE 20 MEQ TABLET PO SCH ×2 (09:15→21:23)
[2018-10-08] MEDS: FINASTERIDE 5 MG TABLET PO SCH (09:15)
[2018-10-08] MEDS: PANTOPRAZOLE 40 MG TABLET PO SCH (09:15)
[2018-10-08] MEDS: ZINC OXIDE PASTE 113 GM TUBE TOP SCH ×2 (09:16→21:24)
[2018-10-08] MEDS: SODIUM CHLORIDE 0.9% 1,000 ML IV SCH ×2 (11:39→16:24)
[2018-10-08] MEDS: ENOXAPARIN 40 MG/0.4 ML SYRINGE SUBCUT SCH (21:11)
[2018-10-08] MEDS: INSULIN GLARGINE 100 UNIT/ML SUBCUT SCH (21:12)
[2018-10-09] MEDS: SODIUM CHLORIDE 0.9% 1,000 ML IV SCH ×5 (05:38→17:33)
[2018-10-09 06:51] LABS: Basophils % 0.4 % (0.0-0.8); Eosinophils # 0.1 10*3/uL (0.0-0.87); Eosinophils % 1.8 % (0.00-10.9); Hematocrit 34.8 VOL% (42.0-52.0); Hemoglobin 11.5 GM/DL (14.0-18.0); Immature Granulocytes % 0.8 %; Immature Granulocytes Absolute 0.06 #; Lymphocytes # 2.1 10*3/uL (1.4-4.0); Mean Corpuscular Hemoglobin 28 PG (27-34); Mean Corpuscular Volume 83.9 FL (87-102); Mean Platelet Volume 12.6 FL (9.6-12.0); Monocytes # 0.7 10*3/uL (0.11-0.8); Neutrophils # 4.1 10*3/uL (1.4-7.4); Platelet Count 237 T/CUMM (130-400); Red Blood Count 4.15 MC/CUMM (3.8-5.5); Red Cell Distribution Width 15.9 % (9.3-17.3); White Blood Count 7.1 T/CUMM (4-12)
[2018-10-09 06:57] LABS: Calcium 7.8 MG/DL (8.5-10.1); Osmolality,Calculated 273.5 MOS/KG (273-304); Potassium 3.2 MMOL/L (3.5-5.1)
[2018-10-09] MEDS: INSULIN LISPRO 100 UNIT/ML SUBCUT SCH ×4 (07:46→20:24)
[2018-10-09] MEDS: POTASSIUM CHLORIDE 20 MEQ TABLET PO SCH ×2 (09:25→20:18)
[2018-10-09] MEDS: FINASTERIDE 5 MG TABLET PO SCH (09:25)
[2018-10-09] MEDS: TAMSULOSIN 0.4 MG CAPSULE PO SCH (09:25)
[2018-10-09] MEDS: ATENOLOL 25 MG TABLET PO SCH ×2 (09:25→20:18)
[2018-10-09] MEDS: PANTOPRAZOLE 40 MG TABLET PO SCH (09:25)
[2018-10-09] MEDS: cefTRIAXone 1,000 MG in SYRINGE 1 EACH IV SCH (11:01)
[2018-10-09] MEDS: POTASSIUM CHLORIDE 20 MEQ TABLET PO PRN ×3 (12:19→17:13)
[2018-10-09] MEDS: ZINC OXIDE PASTE 113 GM TUBE TOP SCH ×2 (16:32→20:23)
[2018-10-09] MEDS: INSULIN GLARGINE 100 UNIT/ML SUBCUT SCH (20:19)
[2018-10-09] MEDS: ENOXAPARIN 40 MG/0.4 ML SYRINGE SUBCUT SCH (20:21)
[2018-10-10 01:04] LABS: Basophils % 0.5 % (0.0-0.8); Eosinophils # 0.2 10*3/uL (0.0-0.87); Eosinophils % 2.7 % (0.00-10.9); Hematocrit 33.3 VOL% (42.0-52.0); Hemoglobin 10.7 GM/DL (14.0-18.0); Immature Granulocytes % 1.1 %; Immature Granulocytes Absolute 0.08 #; Lymphocytes # 1.5 10*3/uL (1.4-4.0); Lymphocytes % 20.2 % (21.2-54.2); Mean Corpuscular HGB Conc 32.1 GM/DL (32-36); Mean Corpuscular Hemoglobin 28 PG (27-34); Mean Corpuscular Volume 86.3 FL (87-102); Mean Platelet Volume 11.5 FL (9.6-12.0); Monocytes # 0.8 10*3/uL (0.11-0.8); Neutrophils # 4.9 10*3/uL (1.4-7.4); Neutrophils % 64.5 % (38.7-73.9); Platelet Count 210 T/CUMM (130-400); Red Blood Count 3.86 MC/CUMM (3.8-5.5); White Blood Count 7.5 T/CUMM (4-12)
[2018-10-10 01:22] LABS: Albumin 1.5 G/DL (3.4-5.0); Bilirubin,Direct 4.24 MG/DL (0.0-0.20); Bilirubin,Indirect 1.1 MG/DL (0.0-1.0); Bilirubin,Total 5.3 MG/DL (0.2-1.0); Calcium 7.4 MG/DL (8.5-10.1); Osmolality,Calculated 274.7 MOS/KG (273-304); Potassium 3.6 MMOL/L (3.5-5.1); Total Protein 5.8 G/DL (6.4-8.3)
[2018-10-10 02:00] LABS: Eosinophils 1 % (0-10); Lymphocytes 11 % (20-55); Segmented Neutrophils 77 % (50-85); Total Cells Counted 100
[2018-10-10 02:01] LABS: Target Cells Few
[2018-10-10 02:02] LABS: Anisocytosis Slight; Microcytosis Slight
[2018-10-10 02:03] LABS: Platelet Estimate Normal
[2018-10-10] MEDS: SODIUM CHLORIDE 0.9% 1,000 ML IV SCH ×2 (06:10→22:10)
[2018-10-10] MEDS: FINASTERIDE 5 MG TABLET PO SCH (09:07)
[2018-10-10] MEDS: POTASSIUM CHLORIDE 20 MEQ TABLET PO SCH ×2 (09:07→20:49)
[2018-10-10] MEDS: PANTOPRAZOLE 40 MG TABLET PO SCH (09:07)
[2018-10-10] MEDS: TAMSULOSIN 0.4 MG CAPSULE PO SCH (09:07)
[2018-10-10] MEDS: ATENOLOL 25 MG TABLET PO SCH ×2 (09:08→20:48)
[2018-10-10] MEDS: cefTRIAXone 1,000 MG in SYRINGE 1 EACH IV SCH (09:12)
[2018-10-10] MEDS: ZINC OXIDE PASTE 113 GM TUBE TOP SCH ×2 (09:34→20:56)
[2018-10-10] MEDS: INSULIN LISPRO 100 UNIT/ML SUBCUT SCH ×4 (09:34→20:54)
[2018-10-10] MEDS ORDERED: MAGNESIUM SULF RIDER 4 GM in PREMIX 1 EACH IV PRN (12:42)
[2018-10-10] MEDS ORDERED: MAGNESIUM HYDROXIDE SUSP 30 ML UDCUP PO ONE (12:43)
[2018-10-10] MEDS: MAGNESIUM SULF RIDER 2 GM in PREMIX 1 EACH IV PRN ×2 (12:55→17:43)
[2018-10-10] MEDS: DOCUSATE SODIUM 100 MG CAPSULE PO SCH (12:56)
[2018-10-10] MEDS: INSULIN GLARGINE 100 UNIT/ML SUBCUT SCH (20:52)
[2018-10-10] MEDS: ENOXAPARIN 40 MG/0.4 ML SYRINGE SUBCUT SCH (20:54)
[2018-10-11 05:09] LABS: Basophils # 0.1 10*3/uL (0.0-0.2); Basophils % 0.8 % (0.0-0.8); Eosinophils # 0.2 10*3/uL (0.0-0.87); Eosinophils % 3.4 % (0.00-10.9); Hematocrit 33.5 VOL% (42.0-52.0); Hemoglobin 11.2 GM/DL (14.0-18.0); Immature Granulocytes % 1.4 %; Immature Granulocytes Absolute 0.09 #; Lymphocytes # 1.7 10*3/uL (1.4-4.0); Lymphocytes % 27.2 % (21.2-54.2); Mean Corpuscular HGB Conc 33.4 GM/DL (32-36); Mean Corpuscular Hemoglobin 28 PG (27-34); Mean Corpuscular Volume 84.2 FL (87-102); Mean Platelet Volume 11.9 FL (9.6-12.0); Monocytes # 0.6 10*3/uL (0.11-0.8); Monocytes % 9.5 % (1.7-12.7); Neutrophils # 3.6 10*3/uL (1.4-7.4); Neutrophils % 57.7 % (38.7-73.9); Platelet Count 259 T/CUMM (130-400); Red Blood Count 3.98 MC/CUMM (3.8-5.5); Red Cell Distribution Width 16.1 % (9.3-17.3); White Blood Count 6.2 T/CUMM (4-12)
[2018-10-11 05:30] LABS: Albumin 1.5 G/DL (3.4-5.0); Bilirubin,Total 4.3 MG/DL (0.2-1.0); Calcium 7.3 MG/DL (8.5-10.1); Osmolality,Calculated 275.5 MOS/KG (273-304); Potassium 3.5 MMOL/L (3.5-5.1); Total Protein 5.9 G/DL (6.4-8.3)
[2018-10-11] MEDS: cefTRIAXone 1,000 MG in SYRINGE 1 EACH IV SCH ×2 (08:28→12:29)
[2018-10-11] MEDS: PANTOPRAZOLE 40 MG TABLET PO SCH (08:28)
[2018-10-11] MEDS: FINASTERIDE 5 MG TABLET PO SCH (08:28)
[2018-10-11] MEDS: DOCUSATE SODIUM 100 MG CAPSULE PO SCH (08:28)
[2018-10-11] MEDS: POTASSIUM CHLORIDE 20 MEQ TABLET PO SCH ×2 (08:28→21:17)
[2018-10-11] MEDS: ATENOLOL 25 MG TABLET PO SCH ×2 (08:28→21:17)
[2018-10-11] MEDS: TAMSULOSIN 0.4 MG CAPSULE PO SCH (08:28)
[2018-10-11] MEDS: INSULIN LISPRO 100 UNIT/ML SUBCUT SCH ×4 (09:50→21:00)
[2018-10-11] MEDS: ZINC OXIDE PASTE 113 GM TUBE TOP SCH ×2 (09:50→22:45)
[2018-10-11] MEDS: SODIUM CHLORIDE 0.9% 1,000 ML IV SCH ×2 (12:29→12:30)
[2018-10-11] MEDS: INSULIN GLARGINE 100 UNIT/ML SUBCUT SCH (21:15)
[2018-10-11] MEDS: ENOXAPARIN 40 MG/0.4 ML SYRINGE SUBCUT SCH (21:16)
[2018-10-12] MEDS: INSULIN LISPRO 100 UNIT/ML SUBCUT SCH (08:21)
[2018-10-12] MEDS: cefTRIAXone 1,000 MG in SYRINGE 1 EACH IV SCH (08:59)
[2018-10-12] MEDS: ATENOLOL 25 MG TABLET PO SCH (09:00)
[2018-10-12] MEDS: DOCUSATE SODIUM 100 MG CAPSULE PO SCH (09:00)
[2018-10-12] MEDS: ZINC OXIDE PASTE 113 GM TUBE TOP SCH (09:00)
[2018-10-12] MEDS: POTASSIUM CHLORIDE 20 MEQ TABLET PO SCH (09:00)
[2018-10-12] MEDS: PANTOPRAZOLE 40 MG TABLET PO SCH (09:00)
[2018-10-12] MEDS: TAMSULOSIN 0.4 MG CAPSULE PO SCH (09:00)
[2018-10-12] MEDS: FINASTERIDE 5 MG TABLET PO SCH (09:00)
[2018-10-12 10:17] VITALS: BP 153/87
== END 2018-10-12 10:55 | disposition hospice, home (50) | DRG 871 ==
LOC: EDUNIT# → EDBD → N.ED 14:38 → N.EDINP 16:19 → N.5E 17:28
PROVIDERS: ADMIT Internal Medicine; ATTEND Internal Medicine